=== PATIENT | female | born 1940 | race Caucasian/White ===

== ENCOUNTER 2021-05-27 07:12 | Inpatient (IN) | payer MEDICARE ==
[~2021-05-27] VITALS: Ht 162.6 cm; Wt 81.6 kg
[~2021-05-27 07:12] MED LIST: ADULT LOW DOSE81 MG PO; AMITRIPTYLINE H25 M3 PO; AMITRIPTYLINE H50 M2; ARICEPT 5 MG TAB5 MG PO; ASPIRIN81 M2; ATENOLOL 50 MG50 M1; BENTYL 10 MG CA10 MG PO; CELEXA40 MG; DITROPAN XL5 M1; FISH OIL 1,0001 EAC5; LASIX 40 MG TAB40 M1; LEVEMIR; LEVEMIR100 UNIT/1 SUBQ; LEVOTHROID75 MCG; LIPITOR10 MG PO; LISINOPRIL10 MG; METOCLOPRAMIDE10 MG; MOBIC7.5 M1; MULTIVITAMINS1 EAC7; NORVASC10 MG PO; NOVOLOG100 UNIT/1; NOVOLOG100 UNIT/1 SUBQ; OMEPRAZOLE20 M2; PRILOSEC OTC20 MG PO; PROBIOTIC1 EAC7 PO; PROZAC20 M1 PO; RENAL VITAMIN0.8 MG PO; SODIUM BICARBO650 M3 PO; SYNTHROID75 MC1 PO; WAL ITIN D; ZYRTEC10 M4 PO
[2021-05-27 07:46] LABS: HEMATOCRIT 36.5 % (37.0-47.0); HEMOGLOBIN 12.5 gm/dL (12.0-15.0); MCH 30.4 pg (26.0-34.0); MCHC 34.3 g/dL (28.0-37.0); MCV 88.7 fL (80.0-100.0); MPV 7.2 fl. (7.2-11.1); RBC 4.11 mil/uL (4.20-5.00); RDW-CV 18.3 % (10.5-14.5); WBC 8.9 thou/uL (4.0-11.0)
[2021-05-27 07:53] LABS: CALCIUM 10.2 mg/dL (8.5-10.1); CREATININE 3.6 mg/dL (0.6-1.3); POTASSIUM 4.1 mmol/L (3.5-5.1)
[2021-05-27] MEDS ORDERED: NORCO5 PO (10:27)
--- NOTE | 2021-05-27 11:48 | EKG ---
[place] [address] ELECTROCARDIOGRAM REPORT Name: KARAN BENITO Room: [facility]#: [id number] Admission: 05/27/21 Attend Phys: Geo Chowdary Discharge: Date of : 40 Date of Service: 05/27/21 0748 Report #: [id number] THIS REPORT FOR: //name// 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: : 1940 Requested By: Geo Rodriguez Order Number: [id number] Reading MD: Roman Gong Measurements Intervals [place] Rate: 78 P: 44 AR: 191 QRS: 31 QRSD: 92 T: 62 QT: 429 QTc: 489 Interpretive Statements Sinus rhythm Nonspecific ST segment depression Consider left ventricular hypertrophy Compared to ECG 06/04/2007 23:00:24 ST (T wave) deviation no longer present Electronically Signed On 05-27-2021 11:48:50 CDT by Roman Gong [email or web address] <ELECTRONICALLY SIGNED> By: Roman Gong MD, FAC 05/27/21 1148 0748 0748 Roman Gong MD, [facility] /EPI
[2021-05-27 13:15] LABS: ABSOLUTE BASOPHILS 0.1 thou/uL (0.0-0.2); ABSOLUTE EOSINOPHILS 0.1 thou/uL (0.0-0.7); ABSOLUTE LYMPHOCYTES 1.6 thou/uL (0.8-5.3); ABSOLUTE MONOCYTES 0.4 thou/uL (0.0-1.2); ABSOLUTE NEUTROPHILS 4.7 thou/uL (1.6-8.1); BASOPHILS 1.2 %; EOSINOPHILS 0.9 %; HEMATOCRIT 34.8 % (37.0-47.0); LYMPHOCYTES 23.4 %; MCHC 34.6 g/dL (28.0-37.0); MCV 89.6 fL (80.0-100.0); MONOCYTES 5.3 %; MPV 7.1 fl. (7.2-11.1); NUCLEATED RBCS 0 /100WBC; PLATELET COUNT* 195 thou/uL (150-400); POLYS 69.2 %; RBC 3.88 mil/uL (4.20-5.00); RDW-CV 18.5 % (10.5-14.5); WBC 6.8 thou/uL (4.0-11.0)
[2021-05-27 13:19] LABS: BE -0.5 mmol/L (-2 to +3); PCO2 32.5 mmHg (35.0-45.0); PO2 88.9 mmHg (75.0-100.0); pH 7.461 (7.340-7.450)
[2021-05-27 13:24] LABS: CALCIUM 9.5 mg/dL (8.5-10.1); CREATININE 3.9 mg/dL (0.6-1.3)
[2021-05-27 13:29] LABS: ALBUMIN 3.7 g/dL (3.4-5.0); TOTAL BILIRUBIN 0.2 mg/dL (<0.1-1.0); TOTAL PROTEIN 7.9 g/dL (6.4-8.2)
[2021-05-27 17:25] VITALS: BP 154/75
--- NOTE | 2021-05-27 18:19 | NUR ---
PATIENT ARRIVED FROM SURGERY THIS EVENING. PATIENT SETTLED TO ROOM. HISTORY ASSESSMENT AND VITALS COMPLETED AND DOCUMENTED. PATIENT HAS COMPLAINTS OF ABDOMINAL PAIN, TREATED ADEQUATELY WITH FENTANYL. OXYGEN ON AT 3L/NC. PATIENT HAS GOOD APPETITE. SURGICAL DRESSING CLEAN/DRY/INTACT. PATIENT DENIES ANY NEEDS AT THIS TIME. CALL LIGHT WITHIN REACH.
[2021-05-27 20:30] VITALS: BP 175/76
[2021-05-27 21:37] LABS: HEMATOCRIT 32.7 % (37.0-47.0); HEMOGLOBIN 11.3 gm/dL (12.0-15.0)
[2021-05-28] VITALS: BP 143/60
[2021-05-28 04:10] VITALS: BP 150/63
[2021-05-28 04:22] LABS: ABSOLUTE EOSINOPHILS 0.1 thou/uL (0.0-0.7); ABSOLUTE LYMPHOCYTES 1.7 thou/uL (0.8-5.3); ABSOLUTE MONOCYTES 0.4 thou/uL (0.0-1.2); ABSOLUTE NEUTROPHILS 4.2 thou/uL (1.6-8.1); BASOPHILS 0.6 %; EOSINOPHILS 1.6 %; HEMATOCRIT 30.6 % (37.0-47.0); HEMOGLOBIN 10.7 gm/dL (12.0-15.0); LYMPHOCYTES 26.1 %; MCH 31.1 pg (26.0-34.0); MCHC 34.9 g/dL (28.0-37.0); MCV 89.3 fL (80.0-100.0); MONOCYTES 6.3 %; MPV 6.9 fl. (7.2-11.1); NUCLEATED RBCS 0 /100WBC; PLATELET COUNT* 173 thou/uL (150-400); POLYS 65.4 %; RBC 3.43 mil/uL (4.20-5.00); RDW-CV 18.2 % (10.5-14.5); WBC 6.5 thou/uL (4.0-11.0)
--- NOTE | 2021-05-28 04:59 | NUR ---
Alert and oriented x 4. Abdominal dressing to lower abdomen is dry and intact. She was up to the bedside commode with assist but wasn't voiding much. Vitals have been stable. She has O2 at 3L n/c and has no c/o shortness of air this shift. She was stating that she had abdominal pain HH had been ordered and it was in stable range. Pain meds were given and has helped. She did feel like she had to keep voiding so bladder scan was done and it was 835mls Dr Parish was notified and ordered a walters o DD. It has had a large amount of urine output. She has slept well after walters inserted.
[2021-05-28 05:20] LABS: ALBUMIN 3.1 g/dL (3.4-5.0); CREATININE 4.6 mg/dL (0.6-1.3); POTASSIUM 3.9 mmol/L (3.5-5.1); TOTAL BILIRUBIN 0.3 mg/dL (<0.1-1.0)
[2021-05-28 07:55] VITALS: BP 152/63
--- NOTE | 2021-05-28 14:37 | NUR ---
Pt is A&O. Resides at home alone. Independent, dtr provides transportation. Pt uses a walker for mobility. No home o2. Pt is current at [facility] on a MWF 1145 schedule, Pt will return to HD at [facility] and will continue HD through June. Pt had PD port placed, experiencing pain, to speak with surgeon regarding pain control. Hx of VNA HH, Pt wants VNA at dc, H&P, dc orders and facesheet will need to be faxed to [phone]. Hx of SNF several years ago. Pt to have dialysis today. Monitor pain. CM updated [facility] of probable weekend dc. H&P and flowsheets will need to be faxed to [phone]
--- NOTE | 2021-05-28 19:27 | NUR ---
Pt remained A&O x4 for entire shift. Pt off unit for dialysis this afternoon. Pt's dressing remained clean, dry and intact. Pt pleasant with staff, vital signs stable. Pt given meds per JAN. Bed in low position, bed alarm on, call light within reach.
[2021-05-28 19:50] VITALS: BP 132/61
[2021-05-29 06:05] LABS: ABSOLUTE EOSINOPHILS 0.1 thou/uL (0.0-0.7); ABSOLUTE LYMPHOCYTES 1.2 thou/uL (0.8-5.3); ABSOLUTE MONOCYTES 0.4 thou/uL (0.0-1.2); ABSOLUTE NEUTROPHILS 3.5 thou/uL (1.6-8.1); BASOPHILS 0.4 %; EOSINOPHILS 2.7 %; HEMATOCRIT 29.7 % (37.0-47.0); HEMOGLOBIN 10.2 gm/dL (12.0-15.0); LYMPHOCYTES 22.4 %; MCH 30.4 pg (26.0-34.0); MCHC 34.4 g/dL (28.0-37.0); MCV 88.2 fL (80.0-100.0); MONOCYTES 6.8 %; MPV 7.3 fl. (7.2-11.1); NUCLEATED RBCS 0 /100WBC; PLATELET COUNT* 181 thou/uL (150-400); POLYS 67.7 %; RBC 3.36 mil/uL (4.20-5.00); RDW-CV 18.6 % (10.5-14.5); WBC 5.2 thou/uL (4.0-11.0)
[2021-05-29 06:10] LABS: CALCIUM 8.7 mg/dL (8.5-10.1); POTASSIUM 4.2 mmol/L (3.5-5.1); TOTAL BILIRUBIN 0.2 mg/dL (<0.1-1.0); TOTAL PROTEIN 6.9 g/dL (6.4-8.2)
[2021-05-29 06:40] LABS: CREATININE 3.4 mg/dL (0.6-1.3)
[2021-05-29 07:45] VITALS: BP 165/68
--- NOTE | 2021-05-29 15:02 | CON ---
[address] [address] CONSULTATION Name: KARAN BENITO Room: [address] IN M.R.#: [id number] Admission: 05/28/21 Attend Phys: Sushant Parish MD Discharge: Date of : 40 Report #: [id number] THIS REPORT FOR: cc: Kush Gresham John E. DO Khan, Abid R. MD ~ DATE OF CONSULTATION: 05/28/2021 NEPHROLOGY CONSULTATION REASON FOR CONSULT: End-stage kidney disease. HISTORY OF PRESENT ILLNESS: An 80-year-old female with a history of end-stage kidney disease, on hemodialysis Monday, Monday, Monday, who was admitted postoperatively after having a peritoneal dialysis catheter placed. She was having some abdominal discomfort and hypoxia and thus was admitted for observation. She is tolerating dialysis well, has some pain in her abdomen, but is receiving pain medications for this. Otherwise, is tolerating her dialysis treatment well. She did undergo a CT scan of her abdomen and it was unrevealing. REVIEW OF SYSTEMS: Constitutional, psych, heme, eyes, ENT, respiratory, cardiac, GI, , endocrine, all negative except as documented above. PAST MEDICAL HISTORY: End-stage kidney disease, COPD, diabetes type 2, hypertension, hypothyroidism. FAMILY HISTORY: Nonpertinent for this 80-year-old female. CURRENT MEDICATIONS: Reviewed. SOCIAL HISTORY: Former smoker. PHYSICAL EXAMINATION: VITAL SIGNS: Blood pressure 152/63, pulse 80, respirations 19, temperature 36.8 GENERAL: No acute distress. Eyes open. EARS: Externally normal. NECK: Supple. CARDIOVASCULAR: Regular rate. LUNGS: No crackles. ABDOMEN: Soft. MUSCULOSKELETAL: Nontender. PSYCHIATRIC: Awake, alert. LABORATORY DATA: White cell count 6.5, hemoglobin 10.7, platelets [place] [address] CONSULTATION Name: KARAN BENITO Room: [address]#: [id number] Admission: 05/28/21 Attend Phys: Sushant Parish MD Discharge: Date of : 40 Report #: [id number] 131, potassium 3.9, chloride 96, bicarbonate 25, BUN 42, creatinine 4.6, glucose 90, albumin 3.1, calcium 9.0. ASSESSMENT AND PLAN: 1. End-stage kidney disease, on hemodialysis Monday, Monday and Monday at the [facility]. She is status post peritoneal dialysis catheter placement. 2. Hypertension. 3. Noninsulin-dependent diabetes type 2. 4. Chronic obstructive pulmonary disease. 5. Hypothyroidism. PLAN: The patient is seen on dialysis, tolerating treatment well. She will need a followup in PD clinic in 1 week for a dressing change. I emphasized to her the importance of avoiding constipation. She tells me she did take the laxative today. We will follow for dialysis needs. Thank you, for requesting my opinion in the care and management of this patient. <ELECTRONICALLY SIGNED> By: Fareed Chavez MD 05/29/21 1502 1448 [id number] Chavez MD /nt
[2021-05-29 16:00] VITALS: BP 132/56
--- NOTE | 2021-05-29 18:42 | NUR ---
ALERT AND ORIENTED X4. UP WITH 1 ASSIST, GAIT BELT AND WALKER. ON IV ANTIBIODICS. NEW IV STARTED IN RIGHT HAND. HAS FISTULA IN LEFT UPPER ARM AND TESSIO LEFT UPPER CHEST FOR DIALYSIS. LEFT LOWER ABD DRESSING DRY AND INTACT. USES CALL LIGHT FOR ASSIST.
[2021-05-29 20:56] VITALS: BP 153/73
[2021-05-30 02:28] VITALS: BP 168/74
--- NOTE | 2021-05-30 02:31 | NUR ---
PATIENT AWAKE AND CALLING PER NURSE CALL LIGHT FOR ASSIST TO GET UP IN CHAIR. ASKED WHERE SHE WAS. RE-ORIENTED. VITAL SIGNS AND BLOOD GLUCOSE CHECKED AND WITHIN NORMAL LIMITS. CHAIR ALARM PROVIDED. CONTINUE TO MONITOR.
--- NOTE | 2021-05-30 04:59 | NUR ---
PATIENT ALERT AND ORIENTED X 4 WITH EXCEPTION OF WAKING IN THE NIGHT AND FORGETTING WHERE SHE WAS AT. RE-ORIENTED AND PATIENT WENT BACK TO SLEEP. DRESSING TO ABD SITE CLEAN AND DRY. MEDS/ANTIBIOTIC PER ORDER. VITAL SIGNS STABLE AND NO SHORTNESS OF AIR. IS HOWEVER STILL REQUIRING SUPPLEMENTAL O2 AT 3L/MIN. HOURLY ROUNDING. CONTINUE TO MONITOR.
[2021-05-30 06:27] LABS: HEMATOCRIT 30.9 % (37.0-47.0); HEMOGLOBIN 10.7 gm/dL (12.0-15.0); MCHC 34.6 g/dL (28.0-37.0); MCV 89.5 fL (80.0-100.0); MPV 7.4 fl. (7.2-11.1); NUCLEATED RBCS 0 /100WBC; PLATELET COUNT* 194 thou/uL (150-400); RBC 3.45 mil/uL (4.20-5.00); RDW-CV 18.6 % (10.5-14.5); WBC 6.6 thou/uL (4.0-11.0)
[2021-05-30 06:41] LABS: CALCIUM 9.4 mg/dL (8.5-10.1); POTASSIUM 5.9 mmol/L (3.5-5.1); TOTAL BILIRUBIN 0.4 mg/dL (<0.1-1.0); TOTAL PROTEIN 7.5 g/dL (6.4-8.2)
[2021-05-30 06:52] LABS: CREATININE 4.4 mg/dL (0.6-1.3)
[2021-05-30 07:42] LABS: ABSOLUTE LYMPHOCYTES 0.3 thou/uL (0.8-5.3); ABSOLUTE MONOCYTES 0.3 thou/uL (0.0-1.2); ABSOLUTE NEUTROPHILS 5.9 thou/uL (1.6-8.1); PLATELET ESTIMATE ADEQUATE
[2021-05-30 08:00] VITALS: BP 113/62
[2021-05-30 16:00] VITALS: BP 156/62
--- NOTE | 2021-05-30 20:16 | NUR ---
ALERT AND ORIENTED X4. UP WITH 1 ASSIST, GAIT BELT AND WALKER. HAS LEDESMA CATHETER PATENT WITH CLEAR PALE YELLOW URINE. TOOK STOOL SOFTNER FOR CONSTIPATION. DRESSINGS DRY AND INTACT OVER ABD INCISION SITE. HAS TESSIO AND FISTULA FOR DIALYSIS. REMAINS ON O2 AT 3L/NC. TAKES PILLS WITHOUT DIFFICULTY. USES CALL LIGHT FOR ASSIST.
[2021-05-30 20:35] VITALS: BP 158/70
[2021-05-31 00:36] VITALS: BP 149/60
--- NOTE | 2021-05-31 05:12 | NUR ---
PATIENT HAS REMAINED ALERT AND ORIENTED X 4 THROUGHOUT THE SHIFT AND RESTING QUIETLY ON HOURLY ROUNDS. ONE TIME ORDER OF LACTULOSE GIVEN PER ORDER. TURNING SELF IN BED. NO SHORTNESS OF AIR. O2 REMAINS ON AT 2L/MIN. VITAL SIGNS STABLE. NO BM'S THIS SHIFT. DRESSING TO ABD CLEAN AND DRY. CONTINUE TO MONITOR.
[2021-05-31 05:55] LABS: ABSOLUTE EOSINOPHILS 0.2 thou/uL (0.0-0.7); ABSOLUTE MONOCYTES 0.5 thou/uL (0.0-1.2); ABSOLUTE NEUTROPHILS 6.1 thou/uL (1.6-8.1); BASOPHILS 0.3 %; EOSINOPHILS 2.3 %; HEMATOCRIT 28.8 % (37.0-47.0); HEMOGLOBIN 10.1 gm/dL (12.0-15.0); LYMPHOCYTES 22.3 %; MCH 30.8 pg (26.0-34.0); MONOCYTES 5.7 %; MPV 7.1 fl. (7.2-11.1); NUCLEATED RBCS 0 /100WBC; PLATELET COUNT* 224 thou/uL (150-400); POLYS 69.4 %; RBC 3.27 mil/uL (4.20-5.00); RDW-CV 18.4 % (10.5-14.5); WBC 8.8 thou/uL (4.0-11.0)
[2021-05-31 05:58] LABS: CALCIUM 9.3 mg/dL (8.5-10.1); CREATININE 5.2 mg/dL (0.6-1.3)
[2021-05-31 06:00] LABS: POTASSIUM 4.6 mmol/L (3.5-5.1)
[2021-05-31 08:23] VITALS: BP 167/71
[2021-05-31 15:45] VITALS: BP 164/75
--- NOTE | 2021-05-31 16:17 | NUR ---
PT UP TO BSC WITH ASSIST. BALTAZAR TO DD FOR RETENTION. DIALYSIS TODAY. REMOVED 3L. O2 2LNC. BG THIS AM 39. JUICE GIVEN AND DR WADE NOTIFIED. RECHECKS 55/105. PT TO D/C TO SHELTER WHEN PLACEMENT IS FOUND. CALL LIGHT IN REACH. FALL PRECAUTIONS IN PLACE.
--- NOTE | 2021-05-31 16:19 | NUR ---
cm spk with pt regarding snf options, pt indicated [facility]. pt did not have a specific alt option, her only preference is facility [place] in [place]. cm faxed referrals to [facility] and [facility].
[2021-05-31 19:45] VITALS: BP 158/77
--- NOTE | 2021-06-01 04:05 | NUR ---
PT A&O X 4. VSS ON 2L. LANTUS ONLY GIVEN 25 UNITS PER PT REQUEST. LT CHEST DIALYSIS PORT INTACT. ABD DRESSINGS C/D/I. LEDESMA IN PLACE. NO C/O PAIN. CALL LIGHT WITHIN REACH. WILL CONTINUE TO MONITOR.
[2021-06-01 08:32] VITALS: BP 112/61
[2021-06-01 12:12] VITALS: BP 160/58
[2021-06-01 15:42] VITALS: BP 149/62
--- NOTE | 2021-06-01 18:16 | NUR ---
PATIENT HAS REMAINED A&OX4, PLEASANT AND COOPERATIVE WITH CARES THIS SHIFT. PATIENT HAS BEEN INCONTINENT OF LOOSE BM SEVERAL TIMES TODAY AND REQUESTED BENTYL FROM DR. GANN, WHICH WAS ORDERED. PATIENT ALSO REQUESTED IV BE REMOVED AND THIS WAS ALOS APPROVED BY DR. GANN THEREFORE IV FROM RIGHT HAND WAS REMOVED. URINARY CATHETER TO DD, CLEAR YELLOW URINE IN COLLECTION BAG. MEDICATIONS AND INSULIN ADMINISTERED ORDERED. PATIENT C/O ABD AND BACK PAIN HOWEVER REQUESTS APAP INSTEAD OF HYDROCODONE, STATING "THAT CONSTIPATES ME". CALL LIGHT AND FREQUENTLY USED ITEMS WITHIN REACH.
[2021-06-01 19:54] VITALS: BP 142/50
--- NOTE | 2021-06-02 04:59 | NUR ---
06/01/212219 YOU CALL SENT TO DR. GANN THAT PATIENT REFUSED GLARGINE DUE TO LOW BLOOD GLUCOSE LEVELS PAST TWO MORNINGS. 06/01 HS BG 118. HX: 05/31/21 HS BG 148, 25 UNITS GLARGINE GIVEN, AM BG 59. 05/30/21 HS BG 161, AM BLOOD GLUCOSE WAS 39. CONFIRMATION OF RECEIPT OF MESSAGE RECEIVED AT 0, NO CALL BACK.
--- NOTE | 2021-06-02 06:30 | NUR ---
PT A&OX4, VSS ON ROOM AIR, URINARY CATHETER IN PLACE, NO IV ACCESS - PHYSICIAN AWARE, NO CO PAIN OR DISCOMFORT, PT SLEEPING WELL. ASSESSMENTS AND HOURLY ROUNDINGS COMPLETE, WILL CONTINUE TO MONITOR.
[2021-06-02 08:00] VITALS: BP 163/73
[2021-06-02 08:13] LABS: HEMATOCRIT 32.1 % (37.0-47.0); HEMOGLOBIN 10.9 gm/dL (12.0-15.0); MCH 30.3 pg (26.0-34.0); MPV 7.1 fl. (7.2-11.1); RBC 3.61 mil/uL (4.20-5.00); RDW-CV 18.8 % (10.5-14.5); WBC 7.1 thou/uL (4.0-11.0)
[2021-06-02 08:20] LABS: CALCIUM 9.7 mg/dL (8.5-10.1); CREATININE 4.6 mg/dL (0.6-1.3); POTASSIUM 5.3 mmol/L (3.5-5.1)
--- NOTE | 2021-06-02 13:20 | NUR ---
ALANNAH WITH [facility] INFORMED CM THEY ARE, NOW, NOT ACCEPTING OF PT, AFTER TELLING CM YESTERDAY THAT THE DON WAS SUBMITTING FOR AUTH. CM SPK WITH TOBY AT [facility] WHO INDIACATED SHE NEEDS UPDATED PT/OT NOTES AND COVID TEST. CASI SPK WITH V[facility], DIRECTOR OF REHAB IN 11a ROUNDS TO HAVE PT SEE PT. OF 1258 PT WAS VARIANCE D/T PT BEING IN DIALYSIS. CM ASKED SANCHEZ IF PT COULD BE SEEN AGAIN TODAY BY PT.VITALY INIDCATED THERAPIST WILL TRY TO SEE PT AGAIN.
--- NOTE | 2021-06-02 14:21 | NUR ---
1250: PATIENT RETURNED TO ROOM AT THIS TIME VIA BED FROM DIALYSIS.
[2021-06-02 16:40] VITALS: BP 122/65
--- NOTE | 2021-06-02 17:23 | NUR ---
PATIENT RESTING IN BED, EATING DINNER. PORT TO LEFTCHEST, PATENT. PERITONEAL DIALYSIS FISTULA TO RIGHT ARM, PATENT. DIALYSIS DONE TODAY, PATIENT TOLERATED WITHOUT DIFFICULTIES. BLOOD SUGARS MONITORED, INSULIN GIVEN ORDERED. LEDESMA SECURELY INPLACE TO DEPENDENT DRAINAGE, PATENT. PATIENT WITH WET COUGH. LUNGS DIMINISHED BILATERALLY. BED IN LOW/LOCKED POSITION. SIDE RAILS UP X2. CALL LIGHT WITHIN REACH. ALL QUESTIONS AND CONCERNS ADDRESSED.
[2021-06-02 19:48] VITALS: BP 132/62
--- NOTE | 2021-06-03 03:57 | NUR ---
PT A&OX4, VSS ON ROOM AIR, PT UP WITH ASSIST GB & WALKER. NO IV ACCESS APPROVED BY PHYSICIAN. DIALYSIS PATIENT. URINARY CATHETER IN PLACE. PRN PAIN MEDS REQUESTED AND GIVEN ORDERED. PT SLEEPING WELL. WILL CONTINUE TO MONITOR.
[2021-06-03 08:30] VITALS: BP 109/52
[2021-06-03 08:49] VITALS: BP 109/52
[2021-06-03] MEDS ORDERED: CEFDINIR300 MG PO (09:11)
[2021-06-03] MEDS ORDERED: MUCINEX600 MG PO (09:11)
[2021-06-03] MEDS ORDERED: HYDROCODON-ACE1 EAC7 PO (09:11)
[2021-06-03] MEDS ORDERED: TESSALON PERLE100 MG PO (09:11)
[2021-06-03] MEDS ORDERED: IPRAT-ALBUT 0.5-3 ML INH (09:11)
--- NOTE | 2021-06-03 10:12 | NUR ---
CM FAXED UPDATED THERAPY NOTES, AND UPDATED PROGREE NOTES TO [facility] AT [phone]. CM F/U WITH PT'S BEDSIDE RN RE COVID TEST, IM NOT SEEING RESULTS IN PT'S CHART.
--- NOTE | 2021-06-03 14:46 | NUR ---
CM RECEIVED CALL FROM TOBY WITH [facility], INDICATING THE RECEIVED AUTH. PT INFORMED. PT INDICATED HER DTR WAS CONTACTED BY [employer]. CM INFORMED TOBY OF PT DIALYSIS INFO AND SEAT TIME ON , AT [facility]. PT RN GIVEN NUMBER TO CALL REPORT, - [id number]. US TO MAKE CHART COPY. TOBY TO [facility] [phone].
--- NOTE | 2021-06-03 16:27 | NUR ---
PATIENT DISCHARGE/TRANSFERED TO NURSING REHAB FACILITY VIA WHEELCHAIR ACCOMPANIED BY TRANSPORT PERSONNEL. CHART COPIED AND SENT WITH PATIENT. LEDESMA SECURELY INPLACE TO DEPENDENT DRAINAGE. INCISIONS TO ABDOMEN, UNABLE TO ASSESS DUE TO DRESSING. DRESSING C/D/I. DRESSING TO LEFT ABDOMEN CHANGED AT THIS TIME, NO REDNESS, SWELLING OR DRAINAGE TO SITE. PERITONEAL FISTULA TO LEFT ARM WITHOUT COMPLICATIONS. PORT TO LEFT CHEST WITHOUT COMPLICATIONS. DRESSINGS C/D/I. BLOOD SUGARS MONITORED DURING SHIFT, INSULIN GIVEN ORDERED. ALL QUESTIONS AND CONCERNS ADDRESSED. PERSONAL BELONGINGS SENT WITH PATIENT.
--- NOTE | 2021-06-05 17:05 | OP ---
[address] [address] OPERATIVE REPORT Name: KARAN BENITO Room: [address] IN M.R.#: [id number] Admission: 05/28/21 Attend Phys: Sushant Parish MD Discharge: 06/03/21 Date of : 40 Report #: [id number] THIS REPORT FOR: cc: Kush Gresham John E. DO Patterson, Jonathan D. MD ~ DATE OF SURGERY: 05/27/2021 PREOPERATIVE DIAGNOSIS: End-stage renal disease. POSTOPERATIVE DIAGNOSIS: End-stage renal disease. OPERATION: 1. Laparoscopic placement of tunneled intraperitoneal catheter. 2. Laparoscopic omentopexy. SURGEON: Geo Rodriguez MD. ANESTHESIA: General. ESTIMATED BLOOD LOSS: Minimal. SPECIMENS: None. DESCRIPTION OF PROCEDURE: After informed consent was obtained, the patient was brought to the operating room and placed supine. SCDs were placed and working, preoperative antibiotics were administered, general anesthesia was induced. The abdomen was prepped and draped in the usual sterile fashion. A 5 mm incision was made in the left upper quadrant. A 5 mm trocar was placed under direct vision. Pneumoperitoneum was established. Left-sided 5 mm trocar was placed. The omentum was grasped and retracted to the right upper quadrant. Two 2-0 Vicryl sutures were placed using a transfascial PMI suture passer. The sutures were then tied down. This completed the omentopexy. An 8 mm trocar was placed in the left rectus sheath approximately 5 cm above the umbilicus. The 62 cm Covidien catheter was placed through the 8 mm trocar and the tip was placed down into the pelvis. The trocar was then removed so that the internal cuff was in the left rectus sheath. Catheter was then tunneled to the left upper quadrant of the abdomen. It flushed easily with 750 mL of heparinized saline. It drained easily as well. The ports were then removed under direct vision. The skin was closed with 4-0 Monocryl. Incision was dressed with Steri-Strips and a sterile occlusive dressing. COMPLICATIONS: [place] [address] OPERATIVE REPORT Name: KARAN BENITO Room: [address]#: [id number] Admission: 05/28/21 Attend Phys: Sushant Parish MD Discharge: 06/03/21 Date of : 40 Report #: [id number] DISPOSITION: The patient was taken to recovery in satisfactory condition. <ELECTRONICALLY SIGNED> By: Geo Rodriguez MD 06/05/21 1705 1518 1528Jogreta Rodriguez MD /nt
== END 2021-06-03 16:36 | DRG 981 ==
LOC: M.SUR 07:12 → M.TBA 12:39 → M.SUR 16:27 → M.3W 17:25
PROVIDERS: Internal Medicine; Surgery; ADMIT Internal Medicine; ATTEND Internal Medicine
DX: D62 Acute posthemorrhagic anemia (principal); N18.6 End stage renal disease; I12.0 Hypertensive chronic kidney disease with stage 5 chronic kidney disease or end stage renal disease; E87.1 Hypo-osmolality and hyponatremia; G89.18 Other acute postprocedural pain; T81.89XA Other complications of procedures, not elsewhere classified, initial encounter; E83.52 Hypercalcemia; E11.65 Type 2 diabetes mellitus with hyperglycemia; E11.649 Type 2 diabetes mellitus with hypoglycemia without coma; K21.9 Gastro-esophageal reflux disease without esophagitis; F32.9 Major depressive disorder, single episode, unspecified; E03.9 Hypothyroidism, unspecified; J44.9 Chronic obstructive pulmonary disease, unspecified; K59.00 Constipation, unspecified; E11.22 Type 2 diabetes mellitus with diabetic chronic kidney disease; J20.9 Acute bronchitis, unspecified; Z20.822 Contact with and (suspected) exposure to COVID-19; Z88.2 Allergy status to sulfonamides; Z90.710 Acquired absence of both cervix and uterus; Z49.02 Encounter for fitting and adjustment of peritoneal dialysis catheter; Z90.49 Acquired absence of other specified parts of digestive tract; Z87.891 Personal history of nicotine dependence; Z79.82 Long term (current) use of aspirin; Z79.899 Other long term (current) drug therapy; Y83.8 Other surgical procedures as the cause of abnormal reaction of the patient, or of later complication, without mention of misadventure at the time of the procedure; Y92.89 Other specified places as the place of occurrence of the external cause

== ENCOUNTER 2021-07-13 22:57 | Inpatient (IN) | payer MEDICARE ==
[~2021-07-13] VITALS: Ht 152.4 cm; Wt 80.0 kg
[~2021-07-13 22:57] MED LIST changes: +CEFDINIR300 MG PO; +HYDROCODON-ACE1 EAC7 PO; +IPRAT-ALBUT 0.5-3 ML INH; +MUCINEX600 MG PO; +NORCO5 PO; +TESSALON PERLE100 MG PO
[2021-07-13 23:01] VITALS: BP 187/62
[2021-07-13] MEDS ORDERED: NORVASC10 MG PO (23:11)
[2021-07-13] MEDS ORDERED: LOW DOSE ASPIRI81 M1 PO (23:12)
[2021-07-13] MEDS ORDERED: DONEPEZIL HCL 55 M1 PO (23:12)
[2021-07-13] MEDS ORDERED: LEVOXYL150 MCG PO (23:12)
[2021-07-13] MEDS ORDERED: PROBIOTIC1 EAC7 PO (23:13)
[2021-07-13] MEDS ORDERED: AMITRIPTYLINE H25 M3 PO (23:13)
[2021-07-13] MEDS ORDERED: ZYRTEC10 M5 PO (23:13)
[2021-07-13] MEDS ORDERED: SODIUM BICARBO650 M3 PO (23:14)
[2021-07-13] MEDS ORDERED: BENTYL 10 MG CA10 MG PO (23:14)
[2021-07-13] MEDS ORDERED: RENAPLEX-D TAB1 EACH PO (23:15)
[2021-07-13] MEDS ORDERED: PRILOSEC OTC20 MG PO (23:15)
[2021-07-13] MEDS ORDERED: LEVEMIR100 UNIT/1 SUBQ (23:16)
[2021-07-13] MEDS ORDERED: NOVOLIN 70100 UNIT/5 SUBQ (23:17)
[2021-07-13] MEDS ORDERED: HUMALOG100 UNIT/1 SUBQ (23:17)
[2021-07-13 23:56] LABS: ABSOLUTE EOSINOPHILS 0.4 thou/uL (0.0-0.7); ABSOLUTE LYMPHOCYTES 2.1 thou/uL (0.8-5.3); ABSOLUTE MONOCYTES 0.4 thou/uL (0.0-1.2); ABSOLUTE NEUTROPHILS 4.9 thou/uL (1.6-8.1); BASOPHILS 0.4 %; EOSINOPHILS 4.7 %; HEMATOCRIT 24.2 % (37.0-47.0); HEMOGLOBIN 8.2 gm/dL (12.0-15.0); LYMPHOCYTES 26.9 %; MCH 31.2 pg (26.0-34.0); MCV 91.7 fL (80.0-100.0); MONOCYTES 5.2 %; MPV 6.6 fl. (7.2-11.1); NUCLEATED RBCS 0 /100WBC; PLATELET COUNT* 280 thou/uL (150-400); POLYS 62.8 %; RBC 2.64 mil/uL (4.20-5.00); RDW-CV 17.5 % (10.5-14.5); WBC 7.8 thou/uL (4.0-11.0)
[2021-07-14] VITALS (7 sets, daily range): BP systolic 118–159; BP diastolic 52–74
[2021-07-14 00:06] LABS: CALCIUM 8.3 mg/dL (8.5-10.1); CREATININE 5.6 mg/dL (0.6-1.3); POTASSIUM 3.4 mmol/L (3.5-5.1)
[2021-07-14 00:16] LABS: ALBUMIN 2.9 g/dL (3.4-5.0); MAGNESIUM 1.7 mg/dL (1.8-2.4); TOTAL BILIRUBIN 0.2 mg/dL (<0.1-1.0); TOTAL PROTEIN 7.3 g/dL (6.4-8.2)
[2021-07-14 07:14] LABS: URINE BILIRUBIN NEGATIVE (Negative); URINE BLOOD TRACE (Negative); URINE CLARITY CLEAR; URINE COLOR YELLOW; URINE GLUCOSE-RANDOM 2+ (Negative); URINE KETONES NEGATIVE (Negative); URINE LEUKOCYTES-REFLEX NEGATIVE (Negative); URINE NITRITE-REFLEX NEGATIVE (Negative); URINE PROTEIN 2+ (Negative); URINE SPECIFIC GRAVITY <= 1.005 (1.005-1.030); URINE UROBILINOGEN 0.2 E.U./dl (0.2-1.0)
[2021-07-14 07:32] LABS: BACTERIA-REFLEX None Seen /HPF (None Seen); MUCUS 4-6 Moderate strn/LPF (None Seen); SQUAMOUS 0-3 Few /LPF (0-3); URINE RBC 0-2 Rare /HPF (0-2); URINE WBC-REFLEX 0-5 Rare /HPF (0-5)
[2021-07-14 07:33] LABS: CRYSTALS None Seen /LPF (None Seen); HYALINE CASTS 0-3 Few /LPF (None Seen)
--- NOTE | 2021-07-14 09:47 | EKG ---
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: MANUELA : 1940 Requested By: Martha Fabian Order Number: [id number] MD: Rory Carter Measurements Intervals [place] Rate: 98 P: 62 IA: 194 QRS: 21 QRSD: 100 T: QT: 383 QTc: 490 Interpretive Statements Sinus rhythm Repol abnrm, severe global ischemia (LM/MVD) Baseline wander in lead(s) V2 Compared to ECG 05/27/2021 07:48:18 Early repolarization now present Possible ischemia now present Electronically Signed On 07-14-2021 9:47:23 CDT by Rory Carter [email or web address] <ELECTRONICALLY SIGNED> By: Rory Carter MD, FAC 07/14/2147 01 01 Rory Carter MD, [facility] /EPI
--- NOTE | 2021-07-14 09:48 | EKG ---
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: [place] : 1940 Requested By: Martha Fabian Order Number: [id number] MD: Rory Carter Measurements Intervals [place] Rate: 88 P: 87 [place]: 193 QRS: 15 QRSD: 96 T: 29 QT: 414 QTc: 501 Interpretive Statements Sinus rhythm Left ventricular hypertrophy Prolonged QT interval Compared to ECG 07/13/2021 23:02:51 Left ventricular hypertrophy now present Prolonged QT interval now present Electronically Signed On 07-14-2021 9:48:44 CDT by Rory Carter [email or web address] <ELECTRONICALLY SIGNED> By: Rory Carter MD, [facility] 07/14/21 0948 0119 0119 Rory Carter MD, [facility] /EPI
--- NOTE | 2021-07-14 09:50 | EKG ---
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: [place] : 1940 Requested By: Martha Fabian Order Number: [id number] MD: Rory Carter Measurements Intervals [place] Rate: 93 P: 75 [place]: 188 QRS: 20 QRSD: 94 T: 41 QT: 409 QTc: 509 Interpretive Statements Sinus rhythm Minimal ST depression, lateral leads Prolonged QT interval Baseline wander in lead(s) II,III,aVR,aVF Compared to ECG 07/14/2021 01:19:45 Left ventricular hypertrophy no longer present Electronically Signed On 07-14-2021 9:50:07 CDT by Rory Carter [email or web address] <ELECTRONICALLY SIGNED> By: Rory Carter MD, [facility] 07/14/2150 3 3 Rory Carter MD, [facility] /EPI
--- NOTE | 2021-07-14 13:19 | 2DMMODE ---
[place] [address] 2 D/M-MODE ECHOCARDIOGRAM Name: KARAN BENITO Room: [place] [address] ADM IN .R.#: [id number] Admission: 07/14/21 Attend Phys: Donte Gomez Discharge: Date of : 40 Date of Service: 07/14/21 1318 Report #: [id number] THIS REPORT FOR: cc: Kush Gresham John E. DO Blick,Rory Tucker MD [facility] ~ APPROVED REPORT Study performed: 07/14/2021 10:38:22 EXAM: Comprehensive 2D, Doppler, and color-flow Echocardiogram Patient Location: In-Patient Room #: er Status: routine BSA: 1.84 HR: 98 bpm BP: 137/52 mmHg Rhythm: NSR Other Information Study Quality: Good Indications Chest Pain 2D Dimensions IVSd: 14.54 (7-11mm) LVOT Diam: 19.60 (18-24mm) LVDd: 40.98 mm PWd: 13.94 (7-11mm) Ascending Ao: 31.10 (22-36mm) LVDs: 21.44 (25-40mm) Aortic Root: 34.21 mm Volumes Left Atrial Volume (Systole) LA ESV Index: 38.80 mL/m2 Aortic Valve AoV Peak Syed.: 1.82 m/s AO Peak Gr.: 13.18 mmHg LVOT Max P.29 mmHg AO Mean Gr.: 8.88 mmHg LVOT Mean P.93 mmHg LVOT Max V: 1.60 m/s AO V2 VTI: 39.73 cm LVOT Mean V: 1.15 m/s PORTIA (VTI): 2.83 cm2 LVOT V1 VTI: 37.31 [place] [address] 2 D/M-MODE ECHOCARDIOGRAM Name: KARAN BENITO Room: [address] IN [facility]#: [id number] Admission: 07/14/21 Attend Phys: Donte Gomez Discharge: Date of : 40 Date of Service: 07/14/21 1318 Report #: [id number] Mitral Valve MV Mean Gr.: 11.51 mmHg E/A Ratio: 0.79 MV Decel. Time: 117.87 ms MV E Max Syed.: 1.61 m/s MV PHT: 34.18 ms MVA (PHT): 6.44 cm2 TDI E/Lateral E': 13.42 Lateral E' Syed.: 0.12 m/s Pulmonary Valve PV Peak Syed.: 1.52 m/s PV Peak Gr.: 9.19 mmHg Left Ventricle The left ventricle is normal size. There is normal LV segmental wall motion. Mild concentric left ventricular hypertrophy. Left ventricular systolic function is normal. The left ventricular ejection fraction is within the normal range. LVEF is 60-65%. Grade I - abnormal relaxation pattern. Right Ventricle The right ventricle is normal size. The right ventricular systolic function is normal. Atria Left atrium is mildly dilated. The right atrium size is normal. Aortic Valve The aortic valve is normal in structure. No aortic regurgitation is present. There is no aortic valvular stenosis. Mitral Valve There is mitral annular calcification. The mitral valve is normal in structure. Trace mitral regurgitation. No evidence of mitral valve stenosis. Tricuspid Valve The tricuspid valve is normal in structure. Trace tricuspid regurgitation. Unable to assess PA pressure. Pulmonic Valve The pulmonary valve is normal in structure. There is no pulmonic [place] [address] 2 D/M-MODE ECHOCARDIOGRAM Name: KARAN BENITO Room: [address] IN [facility]#: [id number] Admission: 07/14/21 Attend Phys: Donte Gomez Discharge: Date of : 40 Date of Service: 07/14/21 1318 Report #: [id number] Great Vessels The aortic root is normal in size. IVC is normal in size and collapses >50% with inspiration. Pericardium There is no pericardial effusion. <Conclusion> Mild concentric left ventricular hypertrophy. LVEF is 60-65%. <ELECTRONICALLY SIGNED> By: Rory Carter MD, FACC 07/14/21 1318 Rory Carter MD, FACC /INF
--- NOTE | 2021-07-14 15:03 | CON ---
[address] [address] CONSULTATION Name: KARAN BENITO Room: [address] IN M.R.#: [id number] Admission: 07/14/21 Attend Phys: Stuart Hernadez Discharge: Date of : 40 Report #: [id number] THIS REPORT FOR: cc: Kush Gresham,Rory Francis MD [facility] ~ cc: Kush Gresham DO DATE OF CONSULTATION: 07/14/2021 CARDIOLOGY CONSULTATION PRIMARY CARE PHYSICIAN: Kush Gresham DO HISTORY OF PRESENT ILLNESS: The patient is an 80-year-old single white female whom I am asked to see in the Emergency Room today after she complained of chest pain. The patient has no previous history of heart disease. She apparently had a stress test years ago. She is not very active at this time and uses a walker. She has a long history of diabetes, hypertension, hyperlipidemia. She developed end-stage renal disease, was on hemodialysis, started in November. After a couple of months, she transitioned to nocturnal peritoneal dialysis. Recently, she has been dialyzed at night. She has had progressive shortness of breath. She came to the Emergency Room last night after she complained of chest pressure. It lasted several hours. It radiated to her shoulder. It is not related to exertion or meals. The pain was not related to take a deep breath or coughing. She has had no bleeding. Denied the pain being related to food. She denied trauma to her chest. There is no rash. She notes occasional episodes when her heart rate will increase, but she has had no syncope. PAST MEDICAL HISTORY: Previous cholecystectomy, hysterectomy, cataract extraction. She has a history of hypertension, diabetes, hyperlipidemia. She is on insulin. CURRENT MEDICATIONS: Consist of Elavil, amlodipine, aspirin, Bentyl, donepezil, insulin, Synthroid, omeprazole, sodium bicarbonate. ALLERGIES: SHE HAS PREVIOUS INTOLERANCE TO SULFA DRUGS. FAMILY HISTORY: Her mother was an alcoholic. SOCIAL HISTORY: She is a , lives by herself in [place], [place]. She smoked a pack of cigarettes a day, quit 20 years ago. No alcohol abuse. FAMILY HISTORY: Negative [place] [address] CONSULTATION Name: KARAN BENITO Jayme Room: [address]#: [id number] Admission: 07/14/21 Attend Phys: Stuart Hernadez Discharge: Date of : 40 Report #: [id number] REVIEW OF SYSTEMS: She apparently had a previous TIA. No history of asthma or liver disease. She had skin cancer removed in the past. No psychiatric illness. No chronic skin condition. PHYSICAL EXAMINATION: GENERAL: Revealed an elderly female, lying in bed. She appeared in no acute distress. VITAL SIGNS: She had a blood pressure of 150/60, pulse is 80, she is afebrile. HEENT: She was anicteric. Conjunctivae pink. Mucous membranes are moist. NECK: Veins do not appear distended. Carotids, she had a radiating systolic murmur noted in the carotids. Neck was supple. CHEST: Clear to auscultation. CARDIAC: Regular rate and rhythm. Grade 3 systolic ejection murmur at the left sternal border. ABDOMEN: Soft. Peritoneal dialysis catheter is in place. EXTREMITIES: Had no pitting edema. Dorsalis pedis pulse 2+. SKIN: Cool and dry. NEUROLOGIC: Nonfocal. LABORATORY DATA: Her ECG on admission showed a sinus rhythm with nonspecific ST and T-wave changes. Her workup in the Emergency Room last night; she had portable chest x-ray that showed scarring, but no evidence of congestive heart failure, pneumonia or pneumothorax. Her lab work; BUN is 63, creatinine is 5.6. Her high sensitivity troponin was 15, repeat was 16. BNP 1870. White blood cell count 7.8, hemoglobin 8.2. Her COVID antigen stat test was negative. The patient did receive two shots of the vaccine in the past. Urinalysis; 2+ protein, trace blood, many white blood cells. IMPRESSION AND RECOMMENDATIONS: 1. Chest pain. Suspect noncardiac. No evidence of acute myocardial infarction. No rub noted. 2. Cardiac murmur. Suspect aortic stenosis. Recommend echocardiogram. 3. Hypertension. The patient is on amlodipine. 4. Diabetes. The patient is on insulin. 5. End-stage renal disease. The patient is on peritoneal dialysis. 6. Previous tobacco abuse. 7. Anemia. No recent bleeding. <ELECTRONICALLY SIGNED> By: Rory Carter MD, [facility] 07/14/21 1503 0820 [id number] Carter MD, [facility] /nt
[2021-07-15] VITALS: BP 110/53
[2021-07-15 02:06] LABS: GLYCOHEMOGLOBIN (HGB A1C) 6.9 % (4.8-5.6)
[2021-07-15 04:00] VITALS: BP 146/62
[2021-07-15 05:04] LABS: HEMATOCRIT 24.6 % (37.0-47.0); HEMOGLOBIN 8.2 gm/dL (12.0-15.0); MCH 30.8 pg (26.0-34.0); MCHC 33.4 g/dL (28.0-37.0); MCV 92.2 fL (80.0-100.0); MPV 6.4 fl. (7.2-11.1); RBC 2.66 mil/uL (4.20-5.00); RDW-CV 17.6 % (10.5-14.5); WBC 10.4 thou/uL (4.0-11.0)
[2021-07-15 05:16] LABS: ANION GAP 14 mmol/L (7-16); BUN 57 mg/dL (7-18); CALCIUM 9.2 mg/dL (8.5-10.1); CHLORIDE 99 mmol/L (98-107); CHOLESTEROL 161 mg/dL (<200); CO2 23 mmol/L (21-32); CREATININE 5.3 mg/dL (0.6-1.3); GLUCOSE 125 mg/dL (70-99); HDL CHOLESTEROL 40 mg/dL (>40); LDL CHOLESTEROL 93 mg/dL (<100); POTASSIUM 4.3 mmol/L (3.5-5.1); SODIUM 136 mmol/L (136-145); TRIGLYCERIDE 140 mg/dL (<150); VLDL 28 mg/dL (<40)
[2021-07-15 05:25] LABS: SERUM ASSESSMENT CLEAR
--- NOTE | 2021-07-15 06:08 | NUR ---
Pt. alert and oriented X4. Pt. at times anxious. Reported pain in abdomen, Morphine given as ordered with relief. Pt. NSR on tele monitor, BP within limits. Pt on 4L NC, maintaining O2 sats above 90%. Pt. voiding appropriately, Purwik in place. Peritoneal Dialysis completed at 2200. LUQ site clean, dry and intact. ACHS blood sugar checks with insulin sliding scale as ordered. ALl questions and concerns addressed. Call light within reach, fall precautions in place. Will continue to monitor.
[2021-07-15 08:00] VITALS: BP 167/81
--- NOTE | 2021-07-15 11:07 | NUR ---
THE PATIENT IS ALERT. ABLE TO MAKE NEEDS KNOWN. CALL LIGHT WITHIN REACH. DENIES CP OR SOB.
[2021-07-15 12:21] VITALS: BP 130/54
--- NOTE | 2021-07-15 15:15 | NUR ---
[place]. CM spoke with Pt's dtr. Known to this CM from previous hospital stay. Pt is A&O. Resides at home alone. Pt does home PD, follows through [facility]. Pt uses a walker for mobility. Hx of [facility]. Hx of SNF at [facility]. Dtr provides transportation. Pt currently on 2.5L o2, does not use at home. Goal is home at de, no needs anticipated.
[2021-07-15 16:24] VITALS: BP 125/729
[2021-07-15 20:00] VITALS: BP 125/64
[2021-07-16] VITALS (18 sets, daily range): BP systolic 111–159; BP diastolic 42–62
--- NOTE | 2021-07-16 09:24 | EKG ---
[place] [address] ELECTROCARDIOGRAM REPORT Name: JIGNAKARAN Jayme Room: [address] IN ..#: [id number] Admission: 07/14/21 Attend Phys: Donte Gomez Discharge: Date of : 40 Date of Service: 07/15/21 1643 Report #: [id number] THIS REPORT FOR: //name// [facility] Test Date: 2021-07-15 Test Time: 16:43:09 Pat Name: KARAN BENITO Department: Room: [facility] Gender: F Data Entry Manager: DOV : 1940 Requested By: Rory Carter Order Number: [id number] Reading MD: Rory Carter Measurements Intervals [place] Rate: 71 P: 96 KS: 178 QRS: 73 QRSD: 91 T: 27 QT: 410 QTc: 446 Interpretive Statements Sinus rhythm nonspecific st segment changes Posterior infarct, old Compared to ECG 07/14/2021 06:24:58 Myocardial infarct finding now present Prolonged QT interval no longer present Electronically Signed On 07-16-2021 9:24:04 CDT by Rory Carter [email or web address] <ELECTRONICALLY SIGNED> By: Rory Carter MD, [facility] 07/16/21 0924 1643 1643 Rory Carter MD, [facility] /EPI
[2021-07-16 09:30] LABS: HEMATOCRIT 24.2 % (37.0-47.0); HEMOGLOBIN 8.4 gm/dL (12.0-15.0)
--- NOTE | 2021-07-16 11:05 | NUR ---
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 Radial checks in place q 15 min. Vitals q 15 min x 2 hours then 30 min x 2 hours. The patient is alert. Denies CP or SOB. Call light within reach.
--- NOTE | 2021-07-16 11:17 | CON ---
[address] [address] CONSULTATION Name: KARAN BENITO Room: [address] IN .R.#: [id number] Admission: 07/14/21 Attend Phys: Stuart Hernadez Discharge: Date of : 40 Report #: [id number] THIS REPORT FOR: cc: Kush Gresham John E. DO Vasudeva, Amita MD ~ DATE OF CONSULTATION: 07/14/2021 NEPHROLOGY CONSULTATION CONSULTING PHYSICIAN: Sayra Waters MD. REASON FOR NEPHROLOGY CONSULTATION: ESRD, on peritoneal dialysis. REASON FOR ADMISSION: Shortness of breath and chest pain. HISTORY OF PRESENT ILLNESS: This is an 80-year-old female with history of diabetes, ESRD and the patient is on PD, hypothyroidism, esophageal reflux disease, came in with shortness of breath. Her COVID is being checked. Chest x-ray shows evidence of some fluid overload. She is being ruled out for IA. She had a last dialysis on Monday and reports no complications with that. Her blood glucose is running high. ALLERGIES: SULFA. REVIEW OF SYSTEMS: As mentioned in history of present illness and otherwise 10-point review of systems are negative. FAMILY HISTORY: Noncontributory to current illness. SOCIAL HISTORY: Denies any tobacco use, occasional alcohol use, denies any drug use. PAST MEDICAL AND SURGICAL HISTORY: Includes hypertension. She has ESRD, on peritoneal dialysis, tonsillectomy, left foot surgery, diverticulosis, GERD, heart cath, 2 fibroid cysts removed from her breast, hysterectomy, cholecystectomy, appendectomy, depression, diabetes mellitus and hypothyroidism. MEDICATIONS: At home, which include amlodipine, donepezil, levothyroxine, aspirin, cetirizine, amitriptyline, Bacillus coagulans, sodium bicarbonate, dicyclomine, omeprazole, RenaPlex, Levemir and insulin lispro. PHYSICAL EXAMINATION: VITAL SIGNS: Blood pressure is 137/52, temperature 35.9, pulse rate 98, respiratory rate is 29, and pulse ox 98% on 4 liters oxygen [place] [address] CONSULTATION Name: JIGNAKARAN Jayme Room: [address] IN [facility]#: [id number] Admission: 07/14/21 Attend Phys: Stuart Hernadez Discharge: Date of : 40 Report #: [id number] GENERAL: She is awake and alert and oriented x 3. She is tachypneic. HEAD AND EYES: Atraumatic and normocephalic. Conjunctivae normal. EARS, NOSE, AND THROAT: Normal ears and nose. Mucous members are moist. NECK: No JVD. CHEST: Bilateral decreased breath sounds posteriorly. CARDIAC: S1, S2 normal. No murmurs. ABDOMEN: Soft, nondistended, nontender. LOWER EXTREMITIES: There is no lower extremity edema. DIALYSIS ACCESS: She has a fistula in her left arm, which has a good bruit. She has a PD catheter intact in her belly, exit site looks good. NEUROLOGIC: Function grossly intact. LABORATORY DATA: WBC 7.8, hemoglobin is 8.2. Sodium is 130, potassium is 3.4, BUN 63. Other labs are reviewed. IMAGING: Chest x-ray was reviewed. ASSESSMENT: 1. End-stage renal disease, on peritoneal dialysis. 2. The patient comes in with shortness of breath and chest pain, being ruled out for myocardial infarction, chest x-ray shows evidence of pulmonary vascular congestion. 3. Anemia of chronic kidney disease. 4. Constipation. 5. Hypertension. Blood pressure seems to be controlled. 6. Diabetes type 2. We will defer to Internal Medicine for management. 7. Hypothyroidism. 8. Obesity. 9. Gastroesophageal reflux disease. 10. Chronic obstructive pulmonary disease exacerbation. We will defer to Internal Medicine for management of that. PLAN: 1. We will give her erythropoietin to help with her anemia. 2. She is going to undergo peritoneal dialysis tonight. We will hook her up early this evening. We will use one 4.25% bag for more UF. Otherwise, she uses 2 liters dwell volumes, each dwell is 1 hour 15 minutes and about 4 cycles. 3. Potassium is low at 3.4, replaced. 4. Hyponatremia, likely in the setting of impaired free water excretion. 5. Avoid morphine [place] the [place] [address] CONSULTATION Name: KARAN BENITO Room: [address] IN [facility].#: [id number] Admission: 07/14/21 Attend Phys: Stuart Hernadez Discharge: Date of : 40 Report #: [id number] Thank you for this consultation. We will continue to follow with you. Discussed with Dr. Waters and the patient and the patient's nurse. <ELECTRONICALLY SIGNED> By: Gemma Watkins MD 07/16/21 1117 0924 [id number] Watkins MD /nt
--- NOTE | 2021-07-16 15:30 | NUR ---
Vitals monitorted as order. Radial pulse checked as ordered.
--- NOTE | 2021-07-16 15:59 | NUR ---
Pt on 6L, ex ox to be completed prior to dc. 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
[2021-07-17 00:35] VITALS: BP 158/56
[2021-07-17 03:50] LABS: HEMATOCRIT 24.6 % (37.0-47.0); HEMOGLOBIN 8.1 gm/dL (12.0-15.0); MCH 30.8 pg (26.0-34.0); MCV 93.5 fL (80.0-100.0); MPV 6.4 fl. (7.2-11.1); RBC 2.63 mil/uL (4.20-5.00); RDW-CV 17.8 % (10.5-14.5); WBC 7.9 thou/uL (4.0-11.0)
[2021-07-17 04:18] LABS: CALCIUM 9.3 mg/dL (8.5-10.1); CREATININE 5.4 mg/dL (0.6-1.3)
[2021-07-17 04:32] VITALS: BP 145/43
--- NOTE | 2021-07-17 07:54 | NUR ---
ASSUMED CARE OF PT AFTER REPORT AT 1930. PT A&OX4. VSS. PHYSICAL ASSESSMENT COMPLETED AND CHARTED. PT ON O2 AT 4L NC. PT TRACING SR ON TELE. PT UPSTANDBY TO BSC. PT DENIES PAIN. ONGOIN PD. FALL PRECAUTIONS IN PLACE. CALL LIGHT WITHIN REACH.
[2021-07-17 08:00] VITALS: BP 160/54
[2021-07-17 12:00] VITALS: BP 151/85; BP 152/52
[2021-07-17 16:00] VITALS: BP 116/50; BP 133/67
[2021-07-17 20:00] VITALS: BP 142/54
[2021-07-18] VITALS: BP 133/51
[2021-07-18 04:00] VITALS: BP 148/54
--- NOTE | 2021-07-18 05:47 | NUR ---
PATIENT SLEPT MOST OF THE NIGHT. IV REMAINS SALINE LOCKED. PATIENT HAS BEEN HOOKED UP TO PERITONEAL DIALYSIS OVER NIGHT. PATIENT IS ON OXYGEN AT 4-5 L PER NASAL CANNULA. WILL CONTINUE TO MONITOR.
[2021-07-18 08:10] VITALS: BP 157/65
[2021-07-18 08:10] LABS: HEMATOCRIT 23.7 % (37.0-47.0); HEMOGLOBIN 8.1 gm/dL (12.0-15.0); MCH 31.9 pg (26.0-34.0); MCHC 34.2 g/dL (28.0-37.0); MCV 93.2 fL (80.0-100.0); MPV 6.7 fl. (7.2-11.1); RBC 2.54 mil/uL (4.20-5.00); RDW-CV 17.4 % (10.5-14.5); WBC 8.7 thou/uL (4.0-11.0)
[2021-07-18 08:20] LABS: CALCIUM 9.6 mg/dL (8.5-10.1); CREATININE 5.8 mg/dL (0.6-1.3)
[2021-07-18 12:00] VITALS: BP 172/75
[2021-07-18] MEDS ORDERED: CLOPIDOGREL75 MG PO (14:35)
[2021-07-18] MEDS ORDERED: CARVEDILOL3.125 MG PO (14:35)
[2021-07-18] MEDS ORDERED: LIPITOR 40 MG T40 M1 PO (14:35)
[2021-07-18 16:00] VITALS: BP 144/58
--- NOTE | 2021-07-18 18:29 | NUR ---
PATIENT HAS REMAINED A&OX4, PLEASANT AND COOPERATIVE WITH CARES THIS SHIFT. MEDICATIONS ADMINISTERED ORDERED. PATIENT NONCOMPLIANT AT TIMES WITH NASAL CANNULA AND WILL REMOVE IT. PATIENT CURRENTLY RECEIVING PERITONEAL DIALYSIS IN ROOM. BED ALARM ON FOR PATIENT SAFETY. CALL LIGHT AND FREQUENTLY USED ITEMS WITHIN REACH.
[2021-07-18 20:00] VITALS: BP 147/58
[2021-07-19] VITALS: BP 114/55
[2021-07-19 04:12] VITALS: BP 108/50
--- NOTE | 2021-07-19 05:29 | NUR ---
PATIENT SLEPT MOST OF THE NIGHT. IV REMAINS SALINE LOCKED. PATIENT REMAINS ON OXYGEN AT 5L PER NC. PATIENT WAS GIVEN PAIN AND NAUSEA MEDICINE ONCE THIS SHIFT FOR ABDOMINAL PAIN. WILL CONTINUE TO MONITOR.
[2021-07-19 09:57] VITALS: BP 104/51
[2021-07-19 11:57] VITALS: BP 165/75
[2021-07-19 16:35] VITALS: BP 145/56
--- NOTE | 2021-07-19 17:47 | NUR ---
PT A&Ox4. DYALISIS STARTED. MORPHINE FOR PAIN. DENIED NAUSEA. UP WITH 1 TO CHAIR. ON 6LO2. VITALS STABLE. IV PATENT. FALL PRECAUTIONS IN PLACE. WILL CONTINUE TO MONITOR.
[2021-07-19 20:00] VITALS: BP 126/55
--- NOTE | 2021-07-19 20:00 | NUR ---
RECEIVED REPORT AND ASSUMED CARE OF PT, ASSESSMENT COMPLETED. C/O PAIN TO PERITONEAL DIAYLSIS SITE, REASSURANCE GIVEN. O2 ON AT 6L/HFC. NO SOA NOTED AT THIS TIME. TELEMETRY ON SHOWING SR. WILL CONT TO MONITOR AND ASSIST NEEDED.
[2021-07-20 00:41] VITALS: BP 130/60
[2021-07-20 04:00] VITALS: BP 110/49
--- NOTE | 2021-07-20 06:19 | NUR ---
SLEPT FAIRLY WELL TONIGHT. TURNS SELF IN BED FOR COMFORT. NO CHANGE IN ASSESSMENT. HS GOALS OF REST AND COMFORT ACHIEVED.
[2021-07-20 08:00] VITALS: BP 136/49
[2021-07-20 12:00] VITALS: BP 125/50
--- NOTE | 2021-07-20 14:34 | NUR ---
Anticipate dc tomorrow. Pt on 6L o2, will need ex ox at dc. Cxr today. Current with [facility]
--- NOTE | 2021-07-20 15:57 | NUR ---
RN RECEIVED CARE OF PT AT 0700. PT HAD NOTICEABLE DECLINE IN RESPIRATORY STATUS SINCE THIS RN LAST TOOK CARE OF HER. THIS RN MENTIONED THIS TO THE PROVIDER WHEN HE WAS AT THE BEDSIDE. PROVIDER AGREED THAT 6L HF NC IS A CHANGE FROM ROOM AIR AT BASELINE. PROVIDER PLACED ORDERS FOR A STAT CHEST XR AND RN WILL PROCEED APPROPRIATE FROM THERE. PT IS A&ox4, AFEBRILE, HAS COMPLAINTS OF PAIN IN LUQ/L BREAST AREA. RN MADE PROVIDER AWARE OF THIS CHANGE WELL. RN ADMINISTERED PRESCRIBED HYDROCODONE FOR PAINH RELIEF. PT NO LONGER DISCHARGING HOME UNTIL RESPIRATORY STATUS CAN BE MORE CLOSER TOWAREDS PT'S BASELINE. VSS. WILL CONTINUE TO MONITOR AND ACCESS FOR CHANGES.
[2021-07-20 16:00] VITALS: BP 119/56
[2021-07-20 20:15] VITALS: BP 116/52
[2021-07-21 00:07] VITALS: BP 131/47
[2021-07-21 04:00] VITALS: BP 125/50
--- NOTE | 2021-07-21 06:52 | NUR ---
PT SLEPT OFF AND ON OVERNIGHT. RECEIVING PERITONEAL DIALYSIS OVERNIGHT. CO ABD PAIN AND NAUSEA AT TIMES, PRN MEDICATIONS GIVEN ORDERED. PT HAD 200ML EMESIS DARK GREEN LIQUID X1. HS ACCUCHECK 213, INSULIN GIVEN ORDERED. BP ON LEG, LIMB ALERTS TO R AND L ARMS. RWRIST SL IV. L ARM FISTULA. O2 NEEDS FLUCTUATED OVERNIGHT, RT TX GIVEN ORDERED, O2 9L THIS MORNING. PT AO, FORGETFUL. NO LABS THIS MORNING. TELE SR. ABLE TO USE CALL LITE AND MAKE NEEDS KNOWN.
[2021-07-21 11:45] VITALS: BP 125/43
--- NOTE | 2021-07-21 11:49 | NUR ---
Pt up to 10L, continue to wean. KUB today. IVabx. Dr recommending SNF at in. CM to discuss with Pt and dtr.
--- NOTE | 2021-07-21 12:59 | NUR ---
Nutrition: Pt admitted with NSTEMI. Seen for LOS. Pt stated she has N/V and poor intake today. She ate last night, tuna sandwich and soup. She said she is drinking liquids well. She wants Ensure. I will order Nepro for added nutri- tion when her meal intake is low. She also wanted some ice cream right now - I gave her a cup of vanilla ice cream. Wt is at her usual 175#. H/o ESRD on PD, COPD, DM, HTN, OBE, GERD. Labs: BUN 54, cr 5.8, GFR 7, alb 2.9, BG 234. Mild risk at this time. Hopeful for increased appetite once N/V subsides.
[2021-07-21 16:57] VITALS: BP 108/49
[2021-07-21 20:00] VITALS: BP 108/54
[2021-07-22] VITALS (7 sets, daily range): BP systolic 90–123; BP diastolic 42–76
[2021-07-22 04:14] LABS: HEMATOCRIT 26.4 % (37.0-47.0); HEMOGLOBIN 8.8 gm/dL (12.0-15.0); MCH 31.1 pg (26.0-34.0); MCHC 33.4 g/dL (28.0-37.0); MCV 93.1 fL (80.0-100.0); MPV 7.3 fl. (7.2-11.1); RBC 2.84 mil/uL (4.20-5.00); RDW-CV 17.8 % (10.5-14.5); WBC 13.7 thou/uL (4.0-11.0)
[2021-07-22 04:28] LABS: CALCIUM 10.4 mg/dL (8.5-10.1); CREATININE 9.3 mg/dL (0.6-1.3); POTASSIUM 4.3 mmol/L (3.5-5.1)
--- NOTE | 2021-07-22 06:59 | NUR ---
PT HAD LESS NAUSEA OVERNIGHT, NO VOMITING. PRN NAUSEA MEDS GIVEN AND PT SLEPT WELL AFTER MIDNIGHT. PERITONEAL DIALYSIS COMPLETED OVERNIGHT. PT UP WITH MAX ASSIST UP TO BSC. O2 7L NC. TELE SR. R AND L LIMB ALERTS, BP ON LEG. AM LABS DRAWN. ABLE TO USE CALL LITE AND MAKE NEEDS KNOWN.
--- NOTE | 2021-07-22 10:27 | NUR ---
THE PATIENT IS ALERT. ABLE TO MAKE NEEDS KNOWN. DENIES CP OR SOB. CALL LIGHT WITHIN REACH. SR ON THE MONITOR.
--- NOTE | 2021-07-22 12:43 | NUR ---
CM spoke with Pt regarding SNF, Pt in agreement that she is too weak to return directly home. Pt stated that she wants to go to [facility], CM faxed referral. Anticipate that Pt will be medically stable to tx tomorrow. Will need acceptance and insurance auth. [facility] p:[phone] f:[phone]
--- NOTE | 2021-07-22 13:00 | NUR ---
The patient was bladder scanned she has 1ml in her bladder.
--- NOTE | 2021-07-22 15:25 | CARD ---
[address] [address] CARDIAC CATH REPORT Name: KARAN BENITO Room: [address] IN [facility]#: [id number] Admission: 07/14/21 Attend Phys: Stuart Hernadez Discharge: Date of : 40 Report #: [id number] THIS REPORT FOR: cc: Kush Gresham John E. DO Blick, David R. MD [facility] ~ APPROVED REPORT Study performed: 07/16/2021 08:45:30 Patient Details Patient Status: In-Patient Room #: The patient is a 80 year-old female Event Personnel Rory Carter MD: Discharge Door Operator Kika Jules, RN Discharge Door Operator Genie Bae, RN : Monitor Nils Walters RTR Scrub Procedures Performed Access- Right Radial Artery, Diagnostic cardiac catheterization, Hemostasis- Hemoband Indication Non-STEMI , Chest pain Risk Factors Arterial Hypertension, Diabetes Tobacco History (), Dialysis Admission/Lab Medications/Medications given during procedure Heparin Unfract. Procedure Narrative The patient was brought electively to the Cardiac Catheterization Laboratory and was prepped and draped in a sterile manner. The right wrist was infiltrated with 2% Lidocaine subcutaneous anesthesia. A 6 Fr slender glide sheath was inserted into the right radial artery. Coronary angiography was performed using coronary diagnostic catheters. The right coronary system was accessed and visualized with a Diagnostic 6 Fr 3DRC catheter. The left coronary system was accessed and visualized with a Diagnostic 6 Fr JL4 catheter. The left ventricle was accessed and visualized with a Diagnostic 6 Fr JR [address] [address] CARDIAC CATH REPORT Name: KARAN BENITO Room: [address] IN [facility].#: [id number] Admission: 07/14/21 Attend Phys: Stuart Hernadez Discharge: Date of : 40 Report #: [id number] catheter. Left ventricular/Aortic Valve gradient assessed via catheter pullback. Closure device was deployed with a 6 Fr vascband. The patient tolerated the procedure well and there were no complications associated with the procedure. There was no hematoma. Due to abnormal takeoff, unable to cannulate the RCA with a 6 fr JR4 catheter. Was able to cannulate with a 6 Fr 3DRC catheter. Intraoperative Conscious Sedation Fentanyl 25.0 mcg No sedation was given. Case start time 09:38 and case end was 10:07. Fluoro Time: 7.4 minutes Dose: DAP 25789 cGycm2 1087 mGy Contrast Type and Amount: Visipaque 110 ml Coronary Angiography The patient's coronary anatomy is right dominant. Diagnostic Cath Left Main 0% stenosis LAD 60% proximal and 70% mid stenosis noted Circumflex 30% distal stenosis noted Right Coronary 60% mid stenosis Left Ventriculography Left Ventriculography was not performed. Hemodynamics The aortic pressure is 112/40 mmHg with a mean of 68 mmHg. The left ventricular pressure is 137/0 mmHg with a mean of mmHg. The left ventricular end diastolic pressure is 12 mmHg. There was no gradient across the aortic valve upon pullback. Pullback from the left ventricle to the aorta revealed no gradient across the aortic valve. Conclusion 1. CAD with a 60% proximal and 70% mid stenosis of the LAD 2. 60% stenosis of the mid RCA Recommendations Cardiac Rehabilitation Referral [facility] [place] [address] CARDIAC CATH REPORT Name: KARAN BENITO Jayme Room: [address] IN ..#: [id number] Admission: 07/14/21 Attend Phys: Stuart Hernadez Discharge: Date of : 40 Report #: [id number] Medications Administered Clopidogrel <ELECTRONICALLY SIGNED> By: Rory Carter MD, FACC 07/22/21 1525 1525 1525Rory Carter MD, FACC /INF
--- NOTE | 2021-07-22 22:30 | NUR ---
PT BLADDER SCAN 240, ASKING FOR BEDPAN AFTER AND VOIDING 100MLS.
[2021-07-23] VITALS (8 sets, daily range): BP systolic 94–132; BP diastolic 49–62
[2021-07-23 05:35] LABS: CREATININE 10.2 mg/dL (0.6-1.3); MAGNESIUM 2.6 mg/dL (1.8-2.4); PHOSPHORUS* 10.3 mg/dL (2.5-4.9); POTASSIUM 5.2 mmol/L (3.5-5.1)
--- NOTE | 2021-07-23 06:28 | NUR ---
PT SLEPT WELL OVERNIGHT, RECEIVING ZOFRAN AND PO NAUSEA MED ONCE FOR NAUSEA WITHOUT EMESIS. PT INCONTINENT 2 MODERATE LOOSE BROWN BMS OVERNIGHT, LATOSHA CARE GIVEN AND BARRIER CREAM APPLIED. PT WEAK, UNABLE TO STAND TO PIVOT TO COMMODE WITH ASSIST. USING BED LEON TO VOID 100ML. BLADDER SCAN OBTAINED THIS MORNING 130, AFTER INCONTINENT EPISODE WITH BM. TELE SR. OVERNIGHT PD COMPLETED WITHOUT ALARMS. AM LABS DRAWN. O2 5L. PT STATES HER ABDOMEN FEELS A LITTLE BETTER THIS MORNING AFTER HAVING BMS OVERNIGHT. RWRIST SL, LASIX GIVEN ORDERED. R AND L ARM LIMB ALERT, BP ON LEG. CALL LITE IN EASY REACH, ABLE TO MAKE NEEDS KNOWN.
--- NOTE | 2021-07-23 14:43 | NUR ---
THE PATIENT WAS BLADDER SCANNED AND IT WAS 182ML. MD WAS CONTACTED.
--- NOTE | 2021-07-23 15:32 | NUR ---
No weekend dc. Renal following, Pt may need to transition to HD, dialysis today. On 5L. Plan SNF at ut. Cm spoke with [facility], they are unable to accept any insurances at this time, since they changed their name to [facility]. Pt will need to pick an alternate SNF facility, Pt did not feel like discussing today.
[2021-07-24 02:31] VITALS: BP 100/54
[2021-07-24 02:34] VITALS: BP 100/54
--- NOTE | 2021-07-24 04:18 | NUR ---
PT SLEPT ALL NIGHT. MODERATE URINE OUTPUT, LIQUID LOOSE STOOL OVERNIGHT, INCONTINENT. BLADDER SCAN 137 MLS RESIDUALS. SHE IS ALERT AND ORIENTED, FLAT AFFECT. 5L-O2, Q2 TURN, WEAKNESS, NAUSEA. NO FURTHER NAUSEA OR PAIN REPORTED. SHE RECEIVED ALL MEDS SCHEDULED. WILL CONTINUE TO MONITOR.
[2021-07-24 05:23] VITALS: BP 119/52
--- NOTE | 2021-07-24 05:29 | NUR ---
PT REFUSED THIS MORNING LAB DRAW AFTER ONE ATTEMPT.
[2021-07-24 08:04] LABS: HEMATOCRIT 27.2 % (37.0-47.0); HEMOGLOBIN 9.2 gm/dL (12.0-15.0); MCH 31.8 pg (26.0-34.0); MCHC 33.8 g/dL (28.0-37.0); MPV 6.9 fl. (7.2-11.1); RBC 2.89 mil/uL (4.20-5.00); RDW-CV 17.3 % (10.5-14.5)
[2021-07-24 08:38] LABS: ALBUMIN 2.8 g/dL (3.4-5.0); MAGNESIUM 2.2 mg/dL (1.8-2.4); PHOSPHORUS* 9.2 mg/dL (2.5-4.9)
[2021-07-24 09:00] VITALS: BP 100/62
--- NOTE | 2021-07-24 14:12 | NUR ---
0855-PT TO DIALYSIS,NO C/O NAUSEA OR PAIN.WENT VIA BED.
--- NOTE | 2021-07-24 14:13 | NUR ---
1220-PT RETURNED FROM DIALYSIS,REPORTE SHE HAD 250CC FLUIDS REMOVED. PT HAD 3 INCONTINENCE EPISODES OF DIAHHREA WHILE IN DIALYSIS.OTHERWISE TOLERATED WELL.
[2021-07-24 17:17] VITALS: BP 90/45
--- NOTE | 2021-07-24 19:12 | NUR ---
1520-BLADDER SCANNED PT FOR URINE RETENTION 134ML NOTED.
[2021-07-24 20:15] VITALS: BP 97/48
[2021-07-25 02:08] VITALS: BP 117/62
--- NOTE | 2021-07-25 05:06 | NUR ---
PT SLEPT ALL SHIFT, BEDREST, WOKE UP WITH SOME CONFUSION TO WHERE SHE WAS DURING NIGHT BUT REORIENTED FAIRLY QUICKLY. ON HER LAST BLADDER SCAN AT 0400 THE URINE RESIDUAL WAS ABOUT 10 ML. SHE IS A Q2 TURN, INCONTINENT OF BOWEL. 5L-02, DESATS QUICKLY WHEN IT IS REMOVED. SHE IS ALERT WITH SOME CONFUSION RECEIVED MEDS ORDERED. SHE DOES NOT DRINK OR EAT MUCH AT ALL.
[2021-07-25 05:13] VITALS: BP 106/57
[2021-07-25 09:00] VITALS: BP 120/48
[2021-07-25 12:23] VITALS: BP 91/54
[2021-07-25 16:34] VITALS: BP 97/37
[2021-07-25 20:30] VITALS: BP 108/35
[2021-07-26] VITALS: BP 104/33
[2021-07-26 04:00] VITALS: BP 91/30
--- NOTE | 2021-07-26 04:12 | NUR ---
PT ON 5L-O2, BEDREST, INCONTINENT OF BOWEL AND BLADDER, ALERT AND ORIENTED WITH SOME CONFUSION AT NIGHT WHEN WOKE UP. I ENCOURAGED HYDRATION AND ENSURES. SHE DID NOT HAVE ANY NAUSEA THIS SHIFT, GAVE TYLENOL FOR BACK PAIN, REPOSITIONED FOR COMFORT. SHE RECEIVED ALL MEDS SCHEDULED. BLADDER SCAN OF 87 MLS OVERNIGHT.
[2021-07-26 08:00] VITALS: BP 92/64
[2021-07-26 12:00] VITALS: BP 101/66
[2021-07-27 00:25] VITALS: BP 110/43
[2021-07-27 05:00] VITALS: BP 131/43
[2021-07-27 06:34] LABS: CALCIUM 8.2 mg/dL (8.5-10.1); POTASSIUM 3.6 mmol/L (3.5-5.1)
[2021-07-27 08:28] VITALS: BP 126/48
--- NOTE | 2021-07-27 09:01 | NUR ---
CASI CONTACTED SANA WITH [facility] [phone] RE PT GETTING A CHAIR TIME FOR HD. SANA INDICATED THEY WILL HAVE TO BEGAN PROCESS AGAIN, SINCE TOO MUCH TIME HAS ELAPSED. ANDREW TO F/U WITH CASI WITH UPDATE. CASI SPK WITH PT DTR AND SHE [facility]. [facility] INDICATED THIS AM THEY DIDNT HAVE BEDS OF NOW WHEN CM CONTACTED ABOUT A DIFFERENT PT. DTR WANTED CM TO TRY SNF [place]. CM [facility]FERRALS TO [facility], [facility], AND [facility].
[2021-07-27 11:58] VITALS: BP 139/43
--- NOTE | 2021-07-27 14:09 | NUR ---
CASI SPK WITH KELSEY FROM [facility] WHO INDICATED THEY WOULD ACCEPT PT CLINICALLY, HOWEVER THEY DONT HAVE ANY BEDS. CASI LFT MESSAGE W/TANTUM FOR DYLON AT [facility].
[2021-07-27 16:46] VITALS: BP 134/50
[2021-07-27 20:25] VITALS: BP 143/39
[2021-07-28 00:51] VITALS: BP 130/39
[2021-07-28 04:00] VITALS: BP 106/47
--- NOTE | 2021-07-28 04:52 | NUR ---
PATEINT ABLE TO GET TO BSC WITH ASSISTANCE, 5L-O2, ALERT AND ORIENTED WITH SOME CONFUSION AT NIGHT. SHE RECEIVED TYLENOL AND NORCO PRN FOR BACK PAIN. SHE IS TOLERATING FOOD AND DRINKS WITHOUT ANY NAUSEA. SHE HAS HAD SOME ANXIETY AND BEEN CALLING OUT FOR VARIOUS REASONS THIS SHIFT. WILL CONTINUE TO MONITOR.
[2021-07-28 08:00] VITALS: BP 112/55
[2021-07-28 10:07] LABS: HEPATITIS B SURFACE AG Negative (Negative)
[2021-07-28 12:00] VITALS: BP 106/43
--- NOTE | 2021-07-28 13:28 | NUR ---
Pt medically stable to dc to skilled. CM spoke with Pt, Pt wants to return to [facility]. CM spoke with Ava at [facility], they will have a SNF bed tomorrow. Per [facility], Pt has 11 days remaining at 100%, CM explained to Pt and dtr how copay days work, post 20 SNF days. Pt will need to remain HD while in skilled, can transition back to PD post SNF stay, pending nephro recommendations. CM faxed copy of Pt's covid card. CM left for Maureen at [facility] to confirm TTS 1425 chairtime, await call back. Anticipate dc tomorrow.
--- NOTE | 2021-07-28 19:12 | NUR ---
IV REPLACED IN RIGHT FOREARM USING VEIN FINDER. GOT UP IN CHAIR FOR LUNCH. DIALYSIS THIS AFTERNOON. 1/2 LITER REMOVED. COOPERATIVE WITH CARE.
[2021-07-28 20:30] VITALS: BP 175/41
[2021-07-29 03:12] VITALS: BP 113/52
--- NOTE | 2021-07-29 05:06 | NUR ---
PT SLEPT WELL ALL SHIFT, SHE IS UP WITH ASSISTANCE TO BSC. ENCOURAGING FLUIDS, BP IS BECOMING MORE STABLIZED. SHE IS ALERT AND ORIENTED WITH SOME CONFUSION AT NIGHT. RECEIVED ALL MEDS SCHEDULED. RECEIVED NORCO AT BEDTIME FOR BACK PAIN. WILL CONTINUE TO MONITOR.
[2021-07-29 05:59] VITALS: BP 150/50
[2021-07-29 08:00] VITALS: BP 123/40
[2021-07-29 12:00] VITALS: BP 129/62
--- NOTE | 2021-07-29 13:50 | NUR ---
Pt dc delayed, plan dc to [facility] tomorrow. Updated SNF and dtr, Clemencia. Pt to start HD at [facility] on Monday, chair time info given to SNF and dtr. Faxed updated clinicals and flowsheets to [facility].
[2021-07-29 16:00] VITALS: BP 141/58
--- NOTE | 2021-07-29 18:14 | NUR ---
Assumed care at 0700. Pt is alert and oirented. Assesment done and charted. Pt had uneventful night. Pt used the bedside commode. Pt denied any pain. Pt is a dialysis patient. Possible dc tomorrow.
[2021-07-29 19:40] VITALS: BP 140/49
[2021-07-30 01:08] VITALS: BP 105/51
[2021-07-30 05:37] VITALS: BP 111/52
[2021-07-30] MEDS ORDERED: LEVOFLOXACIN500 MG PO (12:19)
[2021-07-30 12:25] VITALS: BP 147/52
--- NOTE | 2021-07-30 13:30 | NUR ---
Pt discharging to [facility] SNF today. 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 Chart copied. Faxed dc orders. CM confirmed with admissions that they are aware that [facility]. Updated Pt's dtr, Kanika of dispo. Pt in agreement with POC. Nurse report number is [id number]
--- NOTE | 2021-07-30 17:55 | NUR ---
[facility] care at 0730. Pt was in dialysis until 1030. Upon arrival, assessment was done and charted. Pt had some bowel movement today. AT 1500hour pt was discharged. Report called to the [facility] almanza. Before pt left the unit, IV was taking out and pt took her belongs with her.
== END 2021-07-30 15:15 | DRG 177 ==
LOC: M.ERS 22:57 → M.TBA-ER 07-14 01:17 → M.ORTHSURG 07-14 01:17 → M.2W 07-14 01:17 → M.ORTHSURG 07-14 15:02 → M.2W 07-17 08:23
PROVIDERS: Emergency Medicine; Family Medicine; Internal Medicine Cardiovascular Disease; Internal Medicine Nephrology; ADMIT Internal Medicine; ATTEND Internal Medicine
PROC: 3E1M39Z Irrigation of Peritoneal Cavity using Dialysate, Percutaneous Approach (ICD-10-PCS; 2021-07-15)
PROC: 4A023N7 Measurement of Cardiac Sampling and Pressure, Left Heart, Percutaneous Approach (ICD-10-PCS; principal; 2021-07-16)
PROC: B2111ZZ Fluoroscopy of Multiple Coronary Arteries using Low Osmolar Contrast (ICD-10-PCS; principal; 2021-07-16)
PROC: 5A0935A Assistance with Respiratory Ventilation, Less than 24 Consecutive Hours, High Flow/Velocity Cannula (ICD-10-PCS; 2021-07-20)
PROC: 5A0935A Assistance with Respiratory Ventilation, Less than 24 Consecutive Hours, High Flow/Velocity Cannula (ICD-10-PCS; 2021-07-21)
PROC: 3E1M39Z Irrigation of Peritoneal Cavity using Dialysate, Percutaneous Approach (ICD-10-PCS; 2021-07-22)
PROC: 5A0935A Assistance with Respiratory Ventilation, Less than 24 Consecutive Hours, High Flow/Velocity Cannula (ICD-10-PCS; 2021-07-22)
PROC: 5A1D70Z Performance of Urinary Filtration, Intermittent, Less than 6 Hours Per Day (ICD-10-PCS; 2021-07-23)
PROC: 5A1D70Z Performance of Urinary Filtration, Intermittent, Less than 6 Hours Per Day (ICD-10-PCS; 2021-07-24)
PROC: 5A0935A Assistance with Respiratory Ventilation, Less than 24 Consecutive Hours, High Flow/Velocity Cannula (ICD-10-PCS; 2021-07-25)
PROC: 5A1D70Z Performance of Urinary Filtration, Intermittent, Less than 6 Hours Per Day (ICD-10-PCS; 2021-07-26)
PROC: 5A1D70Z Performance of Urinary Filtration, Intermittent, Less than 6 Hours Per Day (ICD-10-PCS; 2021-07-28)
PROC: 5A1D70Z Performance of Urinary Filtration, Intermittent, Less than 6 Hours Per Day (ICD-10-PCS; 2021-07-30)
DX: J15.6 Pneumonia due to other Gram-negative bacteria (principal); I21.4 Non-ST elevation (NSTEMI) myocardial infarction; N18.6 End stage renal disease; I12.0 Hypertensive chronic kidney disease with stage 5 chronic kidney disease or end stage renal disease; J44.0 Chronic obstructive pulmonary disease with (acute) lower respiratory infection; J44.1 Chronic obstructive pulmonary disease with (acute) exacerbation; I25.10 Atherosclerotic heart disease of native coronary artery without angina pectoris; Z99.2 Dependence on renal dialysis; E11.22 Type 2 diabetes mellitus with diabetic chronic kidney disease; Z79.4 Long term (current) use of insulin; D63.1 Anemia in chronic kidney disease; K21.9 Gastro-esophageal reflux disease without esophagitis; E03.9 Hypothyroidism, unspecified; K59.00 Constipation, unspecified; Z68.34 Body mass index [BMI] 34.0-34.9, adult

== ENCOUNTER 2021-08-05 19:25 | Inpatient (IN) | payer MEDICARE ==
[~2021-08-05] VITALS: Ht 162.6 cm; Wt 78.9 kg
--- NOTE | ~2021-08-05 | PROC ---
[address] [address] PROCEDURE REPORT Name: JIGNAKARAN M Room: [address] IN M.R.#: [id number] Admission: 08/05/21 Attend Phys: Sayra Waters MD Discharge: Date of : 40 Report #: [id number] THIS REPORT FOR: cc: Kush Gresham John E. DO [facility],Medical Records Staff ~ For GI report, please see the Provation report in Perceptive 7 content. By: 0655Medical Records Staff JOÃO /MADALYN
[~2021-08-05 19:25] MED LIST changes: +CARVEDILOL3.125 MG PO; +CLOPIDOGREL75 MG PO; +DONEPEZIL HCL 55 M1 PO; +HUMALOG100 UNIT/1 SUBQ; +LEVOFLOXACIN500 MG PO; +LEVOXYL150 MCG PO; +LIPITOR 40 MG T40 M1 PO; +LOW DOSE ASPIRI81 M1 PO; +NOVOLIN 70100 UNIT/5 SUBQ; +RENAPLEX-D TAB1 EACH PO; +ZYRTEC10 M5 PO
[2021-08-05 19:26] VITALS: BP 144/44
[2021-08-05 19:51] LABS: ABSOLUTE BASOPHILS 0.1 thou/uL (0.0-0.2); ABSOLUTE EOSINOPHILS 0.2 thou/uL (0.0-0.7); ABSOLUTE LYMPHOCYTES 1.4 thou/uL (0.8-5.3); ABSOLUTE MONOCYTES 0.3 thou/uL (0.0-1.2); ABSOLUTE NEUTROPHILS 4.8 thou/uL (1.6-8.1); BASOPHILS 0.7 %; EOSINOPHILS 2.7 %; LYMPHOCYTES 21.2 %; MCH 32.3 pg (26.0-34.0); MCHC 34.2 g/dL (28.0-37.0); MCV 94.5 fL (80.0-100.0); MPV 6.7 fl. (7.2-11.1); NUCLEATED RBCS 0 /100WBC; PLATELET COUNT* 265 thou/uL (150-400); POLYS 70.4 %; RBC 2.11 mil/uL (4.20-5.00); WBC 6.8 thou/uL (4.0-11.0)
[2021-08-05 19:55] LABS: HEMATOCRIT 19.9 % (37.0-47.0); HEMOGLOBIN 6.8 gm/dL (12.0-15.0)
[2021-08-05 20:19] LABS: CALCIUM 8.5 mg/dL (8.5-10.1); CREATININE 1.9 mg/dL (0.6-1.3); POTASSIUM 3.7 mmol/L (3.5-5.1)
[2021-08-05] MEDS ORDERED: PROZAC20 M1 PO (20:29)
[2021-08-05 20:30] LABS: ALBUMIN 2.9 g/dL (3.4-5.0); MAGNESIUM 1.7 mg/dL (1.8-2.4); TOTAL BILIRUBIN 0.5 mg/dL (<0.1-1.0); TOTAL PROTEIN 7.1 g/dL (6.4-8.2)
[2021-08-05] MEDS ORDERED: AMLODIPINE BESY10 MG PO (20:30)
[2021-08-05 20:46] LABS: URINE BILIRUBIN NEGATIVE (Negative); URINE BLOOD 1+ (Negative); URINE CLARITY CLEAR; URINE COLOR YELLOW; URINE GLUCOSE-RANDOM 2+ (Negative); URINE KETONES NEGATIVE (Negative); URINE LEUKOCYTES-REFLEX NEGATIVE (Negative); URINE NITRITE-REFLEX NEGATIVE (Negative); URINE PROTEIN 2+ (Negative); URINE SPECIFIC GRAVITY 1.015 (1.005-1.030); URINE UROBILINOGEN 0.2 E.U./dl (0.2-1.0)
[2021-08-05 20:54] LABS: MUCUS None Seen strn/LPF (None Seen); SQUAMOUS >10 Many /LPF (0-3)
[2021-08-05 20:56] LABS: URINE RBC 0-2 Rare /HPF (0-2)
[2021-08-05 20:57] LABS: URINE WBC-REFLEX 6-15 Few /HPF (0-5)
[2021-08-05 20:58] LABS: CRYSTALS None Seen /LPF (None Seen); HYALINE CASTS 0-3 Few /LPF (None Seen)
[2021-08-06] VITALS (7 sets, daily range): BP systolic 122–162; BP diastolic 48–67
[2021-08-06] MEDS ORDERED: LIPITOR10 MG PO (05:28)
[2021-08-06] MEDS ORDERED: NOVOLOG FL100 UNIT/M SUBQ (05:32)
[2021-08-06] MEDS ORDERED: LEVO-T50 MCG PO (05:34)
--- NOTE | 2021-08-06 09:40 | EKG ---
[place] [address] ELECTROCARDIOGRAM REPORT Name: KARAN BENITO Room: [address] ADM IN ..#: [id number] Admission: 08/05/21 Attend Phys: Sayra Waters MD Discharge: Date of : 40 Date of Service: 08/05/211927 Report #: [id number] THIS REPORT FOR: //name// [facility] ED Test Date: 2021-08-05 Test Time: 19:28:09 Pat Name: KARAN BENITO Department: Room: [facility] Gender: F Manager Decision Support: MR : [id number] Requested By: Martha Fabian Order Number: [id number] MD: Kush Nair Measurements Intervals [place] Rate: 94 P: 72 MA: 189 QRS: 18 QRSD: 96 T: 34 QT: 383 QTc: 479 Interpretive Statements Sinus rhythm Probable left atrial enlargement Left ventricular hypertrophy ST depr, consider ischemia, anterolateral lds Compared to ECG 07/15/2021 16:43:09 Left ventricular hypertrophy now present Possible ischemia now present Myocardial infarct finding no longer present Electronically Signed On 08-06-2021 9:40:23 CDT by Kush Nair [email or web address] <ELECTRONICALLY SIGNED> By: Kush Nair MD, [facility] 08/06/21939 27 27 Kush Nair MD, [facility] /EPI
[2021-08-07 00:35] VITALS: BP 145/56
[2021-08-07 04:31] VITALS: BP 116/56
[2021-08-07 07:49] LABS: CALCIUM 8.3 mg/dL (8.5-10.1)
[2021-08-07 07:50] LABS: CREATININE 4.6 mg/dL (0.6-1.3)
[2021-08-07 08:00] VITALS: BP 150/54
[2021-08-07 08:07] LABS: HEMATOCRIT 20.5 % (37.0-47.0); MCH 31.4 pg (26.0-34.0); MCV 92.5 fL (80.0-100.0); MPV 7.2 fl. (7.2-11.1); RBC 2.21 mil/uL (4.20-5.00); RDW-CV 17.8 % (10.5-14.5)
[2021-08-07 19:45] VITALS: BP 113/54
[2021-08-08] VITALS (7 sets, daily range): BP systolic 102–151; BP diastolic 40–56
[2021-08-08 03:58] LABS: ALBUMIN 2.3 g/dL (3.4-5.0); MAGNESIUM 1.6 mg/dL (1.8-2.4); POTASSIUM 4.3 mmol/L (3.5-5.1); TOTAL BILIRUBIN 0.4 mg/dL (<0.1-1.0); TOTAL PROTEIN 6.1 g/dL (6.4-8.2)
[2021-08-08 04:02] LABS: CREATININE 3.5 mg/dL (0.6-1.3)
[2021-08-08 04:06] LABS: MCH 31.6 pg (26.0-34.0); MCV 92.7 fL (80.0-100.0); RBC 2.12 mil/uL (4.20-5.00); RDW-CV 17.3 % (10.5-14.5)
[2021-08-08 04:13] LABS: HEMOGLOBIN 6.7 gm/dL (12.0-15.0)
[2021-08-08 04:14] LABS: HEMATOCRIT 19.6 % (37.0-47.0)
[2021-08-08 10:42] LABS: HEMATOCRIT 22.4 % (37.0-47.0); HEMOGLOBIN 7.6 gm/dL (12.0-15.0)
[2021-08-09 01:56] VITALS: BP 117/55
[2021-08-09 07:01] VITALS: BP 136/52
[2021-08-09 07:25] LABS: HEMATOCRIT 23.8 % (37.0-47.0); HEMOGLOBIN 8.1 gm/dL (12.0-15.0); MCH 31.5 pg (26.0-34.0); MCHC 33.9 g/dL (28.0-37.0); MCV 93.1 fL (80.0-100.0); RBC 2.55 mil/uL (4.20-5.00); RDW-CV 16.4 % (10.5-14.5); WBC 6.2 thou/uL (4.0-11.0)
[2021-08-09 07:57] LABS: ALBUMIN 2.4 g/dL (3.4-5.0); CALCIUM 8.8 mg/dL (8.5-10.1); POTASSIUM 3.9 mmol/L (3.5-5.1); TOTAL BILIRUBIN 0.3 mg/dL (<0.1-1.0); TOTAL PROTEIN 6.6 g/dL (6.4-8.2)
[2021-08-09 08:01] LABS: CREATININE 5.3 mg/dL (0.6-1.3)
[2021-08-09 08:16] VITALS: BP 151/65
[2021-08-09 12:00] VITALS: BP 145/65
--- NOTE | 2021-08-09 13:57 | CON ---
[address] [address] CONSULTATION Name: KARAN BENITO Room: [address] IN M.R.#: [id number] Admission: 08/05/21 Attend Phys: Sayra Waters MD Discharge: Date of : 40 Report #: [id number] THIS REPORT FOR: cc: Kush Gresham John E. DO Blick, David R. MD [facility] ~ DATE OF CONSULTATION: 08/09/2021 HISTORY OF PRESENT ILLNESS: The patient is an 80-year-old single white female who I was asked to see in the hospital today because of her history of coronary artery disease. The patient has a long history of diabetes, hypertension, hyperlipidemia. She developed end-stage renal disease, on hemodialysis, starting this past November. A few months ago, she was transitioned to nocturnal peritoneal dialysis. She was admitted to [facility] a month ago with chest pain. I saw her in consultation and because of risk factors, recommend cardiac catheterization that was performed on 07/16 from the right radial artery. Results of the arteriogram, no ventriculogram was performed. There was only 70% narrowing of the mid LAD, 30% narrowing of the circumflex and 60% narrowing of the right coronary artery. She is felt to have mild coronary artery disease. It is recommended she be treated medically. The patient was then discharged to a rehab center. Recently, she was found to be anemic. She was admitted to [facility]. Endoscopy was recommended. She denies any recent chest pain. She has been short of breath. She has been coughing. She denied palpitation or syncope. PAST MEDICAL HISTORY: She has had cholecystectomy, hysterectomy, cataract extraction, hypertension, diabetes, hyperlipidemia. CURRENT MEDICATIONS: Include insulin, amlodipine, aspirin, donepezil, insulin, Synthroid, omeprazole, sodium bicarbonate. ALLERGIES: SHE HAS PREVIOUS INTOLERANCE TO SULFA DRUGS. FAMILY HISTORY: Her mother was an alcoholic. SOCIAL HISTORY: She is . Used to live in [place], [place]. Quit smoking 20 years ago. No alcohol abuse. REVIEW OF SYSTEMS: She apparently had a TIA in the past. No history of asthma, liver disease. She has skin cancer removed in the past. No psychiatric illness. No chronic skin condition. PHYSICAL EXAMINATION: GENERAL: Revealed an elderly female lying in bed. She appeared in no distress. VITAL SIGNS: She had a blood pressure 140/60, pulse is 80. [place] [address] CONSULTATION Name: KARAN BENITO Room: [address]#: [id number] Admission: 08/05/21 Attend Phys: Sayra Waters MD Discharge: Date of : 40 Report #: [id number] HEENT: She was anicteric. Conjunctivae pink. Mucosa is moist. NECK: Veins do not appear distended. Neck was supple. CHEST: Clear to auscultation. HEART: Regular rate and rhythm. Grade 2 systolic ejection murmur. ABDOMEN: Soft. Peritoneal dialysis catheter in place. EXTREMITIES: Had no edema. SKIN: Cool and dry. NEUROLOGIC: Nonfocal. The patient had an echocardiogram performed a month ago that showed normal left ventricular function with mild concentric left ventricular hypertrophy. There was no evidence of aortic stenosis. Her lab work, she had a portable chest x-ray that showed chronic interstitial lung markings. Her lab work, BUN 32, creatinine 5.3. Liver function studies were normal. High sensitivity troponin was not performed. BNP 13,842. Her white blood cell count 6.2, hemoglobin 8.1, it was 6.8 on admission and she was transfused. Her COVID antigen stat test was negative. IMPRESSION AND RECOMMENDATIONS: 1. Coronary artery disease. Noted to be mild on recent heart catheterization. I would continue medical therapy. 2. Hypertension. The patient on amlodipine. 3. Diabetes. The patient is on insulin. 4. End-stage renal disease. The patient is on peritoneal dialysis. 5. Anemia. No cardiac contraindication to endoscopy. <ELECTRONICALLY SIGNED> By: Rory Carter MD, [facility] 08/09/21 1357 0829 0841Daelian Carter MD, FAC /nt
[2021-08-09 16:00] VITALS: BP 138/58
[2021-08-09 19:43] VITALS: BP 152/62
[2021-08-10] VITALS: BP 136/55
[2021-08-10 04:00] VITALS: BP 87/45
[2021-08-10 04:23] LABS: HEMATOCRIT 21.3 % (37.0-47.0); HEMOGLOBIN 7.2 gm/dL (12.0-15.0); MCH 31.3 pg (26.0-34.0); MCV 91.9 fL (80.0-100.0); MPV 7.2 fl. (7.2-11.1); RBC 2.31 mil/uL (4.20-5.00); RDW-CV 16.1 % (10.5-14.5); WBC 6.1 thou/uL (4.0-11.0)
[2021-08-10 04:30] LABS: ALBUMIN 2.2 g/dL (3.4-5.0); CALCIUM 8.6 mg/dL (8.5-10.1); CREATININE 5.8 mg/dL (0.6-1.3); MAGNESIUM 1.8 mg/dL (1.8-2.4); POTASSIUM 3.8 mmol/L (3.5-5.1); TOTAL BILIRUBIN 0.3 mg/dL (<0.1-1.0); TOTAL PROTEIN 6.2 g/dL (6.4-8.2)
[2021-08-10 08:00] VITALS: BP 149/65
[2021-08-10 15:34] VITALS: BP 155/65
[2021-08-10 20:42] VITALS: BP 131/48; BP 138/89
[2021-08-11] VITALS: BP 161/74
[2021-08-11 04:38] LABS: HEMATOCRIT 23.4 % (37.0-47.0); HEMOGLOBIN 8.1 gm/dL (12.0-15.0); MCH 31.5 pg (26.0-34.0); MCHC 34.4 g/dL (28.0-37.0); MCV 91.5 fL (80.0-100.0); MPV 6.6 fl. (7.2-11.1); RBC 2.56 mil/uL (4.20-5.00); RDW-CV 16.4 % (10.5-14.5); WBC 6.6 thou/uL (4.0-11.0)
[2021-08-11 05:09] LABS: ALBUMIN 2.5 g/dL (3.4-5.0); CALCIUM 8.6 mg/dL (8.5-10.1); MAGNESIUM 1.9 mg/dL (1.8-2.4); TOTAL BILIRUBIN 0.4 mg/dL (<0.1-1.0); TOTAL PROTEIN 6.8 g/dL (6.4-8.2)
[2021-08-11 05:10] LABS: CREATININE 3.8 mg/dL (0.6-1.3)
[2021-08-11 08:25] VITALS: BP 142/52
--- NOTE | 2021-08-11 15:41 | CON ---
[address] [address] CONSULTATION Name: KARAN BENITO Room: [address] IN M.R.#: [id number] Admission: 08/05/21 Attend Phys: Sayra Waters MD Discharge: Date of : 40 Report #: [id number] THIS REPORT FOR: cc: Kush Gresham John E. DO Namin, Farid M. MD ~ cc: Kush Gresham DO DATE OF CONSULTATION: 08/09/2021 Please note at the time of this dictation, the patient was seen and physically examined by myself. REASON FOR CONSULTATION: Acute anemia, 5.7. HISTORY OF PRESENT ILLNESS: This is an 80-year-old female who presented to the Emergency Room after going to dialysis and finding out that her hemoglobin was 5.7 on Monday. It is noted that in May of this year, the patient had a hemoglobin of 12. The patient states she has been having nausea and vomiting. She states she has not noticed any bright red blood or melanotic or coffee-ground emesis or any bloody stools or black stools. She states she does have some abdominal cramping in the lower areas. She does have a history of irritable bowel syndrome towards diarrhea, in which she has been taking dicyclomine at home. The patient also states she has been having some issues with acid reflux that has been ongoing for a while and having some epigastric discomfort as well. The patient was here in July and had a non-STEMI and has been on anticoagulant therapy, Plavix since that time. The patient believes that she has been taking her Prilosec for her heartburn when she was at [facility] for rehab. She has been noticing increased shortness of air, requiring some oxygen at 3 liters and has felt increased fatigue. When the patient arrived in the Emergency Room, she was 5.7 at the dialysis. She did get 2 units of blood that has brought her up to 8.1. The patient did undergo an EGD back in [address] Rojas that showed a small hiatal hernia. Back in 2005, she had a full colonoscopy that did show diverticulosis. ALLERGIES: SULFA. PAST MEDICAL HISTORY: Hypertension, diverticulosis, GERD, depression, type 2 diabetes, end-stage renal disease with dialysis and hypothyroidism. PAST SURGICAL HISTORY: Tonsillectomy, left foot surgery. She had a heart cath most recently in part july. She had fibroid cyst removed from her left breast, hysterectomy, cholecystectomy, appendectomy. FAMILY HISTORY: Negative for [place] [address] CONSULTATION Name: KARAN BENITO Room: [address] IN ..#: [id number] Admission: 08/05/21 Attend Phys: Sayra Waters MD Discharge: Date of : 40 Report #: [id number] SOCIAL HISTORY: The patient is currently living at [facility]. She denies any alcohol, illegal drug use or any tobacco use at this time. REVIEW OF SYSTEMS: Twelve-point review of systems is essentially negative except what is mentioned in the HPI. PHYSICAL EXAMINATION: VITAL SIGNS: Temperature 36.3, pulse 84, respirations 21, blood pressure 136/52. HEART: Regular rate and rhythm. LUNGS: Clear. ABDOMEN: Soft, positive bowel sounds in all 4 quadrants with tenderness in the epigastric and in the lower abdominal area. LABORATORY DATA: Hemoglobin is 8.1, white count is 6.2, platelets 239. BUN is 32, creatinine 5.3 and GFR of 8. Please note, hemoglobin in May of this year was 12. CT showed some thickened distal esophagus and moderate hiatal hernia. IMPRESSION: 1. Acute anemia. 2. Gastroesophageal reflux disease. 3. Nausea and vomiting, resolved. 4. Abnormal CT, esophageal thickening in the distal aspect. 5. Abdominal pain, both epigastric and lower with history of irritable bowel syndrome-diarrhea. 6. Anticoagulant therapy, Plavix, [id number] myocardial infarction. 7. Diabetes. 8. End-stage renal disease, dialysis Monday, , Monday. 9. Chronic obstructive pulmonary disease. PLAN: 1. EGD to occur on Monday since the patient had already eaten this morning and dialysis is tomorrow. We will obtain clearance from Cardiology, Dr. Carter who saw her the first part of the month. 2. Continue Protonix b.i.d. 3. Dicyclomine 10 mg before meals and at bedtime. 4. Further recommendations to be made after the patient has been seen by Dr. Owens later today. [address] [address] CONSULTATION Name: KARAN BENITO Room: [address] IN M.R.#: [id number] Admission: 08/05/21 Attend Phys: Sayra Waters MD Discharge: Date of : 40 Report #: [id number] Thank you for allowing us to participate in this patient's care. Please do not hesitate to call with any questions regarding this consult. <ELECTRONICALLY SIGNED> By: Hudson Owens MD 08/11/21 1541 0818 [id number] Owens MD /nt
[2021-08-11 16:50] VITALS: BP 120/51
[2021-08-11 19:17] VITALS: BP 150/63
[2021-08-12 00:13] VITALS: BP 147/62
[2021-08-12 04:01] VITALS: BP 159/57
[2021-08-12 04:35] LABS: HEMATOCRIT 24.1 % (37.0-47.0); HEMOGLOBIN 8.2 gm/dL (12.0-15.0); MCH 31.8 pg (26.0-34.0); MCHC 33.9 g/dL (28.0-37.0); MCV 93.6 fL (80.0-100.0); MPV 6.6 fl. (7.2-11.1); RBC 2.57 mil/uL (4.20-5.00); RDW-CV 16.4 % (10.5-14.5); WBC 5.8 thou/uL (4.0-11.0)
[2021-08-12 04:59] LABS: ALBUMIN 2.5 g/dL (3.4-5.0); CALCIUM 9.1 mg/dL (8.5-10.1); POTASSIUM 4.7 mmol/L (3.5-5.1); TOTAL BILIRUBIN 0.3 mg/dL (<0.1-1.0); TOTAL PROTEIN 6.9 g/dL (6.4-8.2)
[2021-08-12 05:03] LABS: CREATININE 5.2 mg/dL (0.6-1.3)
[2021-08-12 09:45] VITALS: BP 119/52
[2021-08-12 15:59] VITALS: BP 138/55
[2021-08-12 19:40] VITALS: BP 118/44
[2021-08-13 04:25] LABS: HEMATOCRIT 23.7 % (37.0-47.0); HEMOGLOBIN 8.1 gm/dL (12.0-15.0); MCH 31.9 pg (26.0-34.0); MCHC 34.3 g/dL (28.0-37.0); MCV 92.9 fL (80.0-100.0); MPV 6.7 fl. (7.2-11.1); RBC 2.55 mil/uL (4.20-5.00); RDW-CV 16.5 % (10.5-14.5); WBC 6.9 thou/uL (4.0-11.0)
[2021-08-13 04:49] LABS: ALBUMIN 2.7 g/dL (3.4-5.0); CALCIUM 9.3 mg/dL (8.5-10.1); MAGNESIUM 1.9 mg/dL (1.8-2.4); TOTAL BILIRUBIN 0.2 mg/dL (<0.1-1.0); TOTAL PROTEIN 6.9 g/dL (6.4-8.2)
[2021-08-13 04:51] LABS: CREATININE 3.4 mg/dL (0.6-1.3)
[2021-08-13 08:00] VITALS: BP 158/69
[2021-08-13 20:19] VITALS: BP 156/64
[2021-08-14 08:00] VITALS: BP 147/58
[2021-08-14 18:00] VITALS: BP 149/60
[2021-08-14 20:40] VITALS: BP 131/69
[2021-08-15 00:12] VITALS: BP 154/63
[2021-08-15 04:03] LABS: ABSOLUTE EOSINOPHILS 0.4 thou/uL (0.0-0.7); ABSOLUTE LYMPHOCYTES 1.6 thou/uL (0.8-5.3); ABSOLUTE MONOCYTES 0.5 thou/uL (0.0-1.2); ABSOLUTE NEUTROPHILS 4.5 thou/uL (1.6-8.1); BASOPHILS 0.6 %; EOSINOPHILS 5.6 %; HEMATOCRIT 26.5 % (37.0-47.0); HEMOGLOBIN 9.1 gm/dL (12.0-15.0); LYMPHOCYTES 22.3 %; MCH 31.9 pg (26.0-34.0); MCHC 34.2 g/dL (28.0-37.0); MCV 93.1 fL (80.0-100.0); MONOCYTES 7.7 %; MPV 6.5 fl. (7.2-11.1); NUCLEATED RBCS 0 /100WBC; PLATELET COUNT* 332 thou/uL (150-400); POLYS 63.8 %; RBC 2.85 mil/uL (4.20-5.00); RDW-CV 16.8 % (10.5-14.5)
[2021-08-15 04:13] LABS: ALBUMIN 2.8 g/dL (3.4-5.0); CALCIUM 8.9 mg/dL (8.5-10.1); POTASSIUM 3.5 mmol/L (3.5-5.1); TOTAL BILIRUBIN 0.3 mg/dL (<0.1-1.0); TOTAL PROTEIN 6.9 g/dL (6.4-8.2)
[2021-08-15 08:00] VITALS: BP 148/66
--- NOTE | 2021-08-15 12:25 | CON ---
[address] [address] CONSULTATION Name: KARAN BENITO Room: [address] IN .R.#: [id number] Admission: 08/05/21 Attend Phys: Sayra Waters MD Discharge: Date of : 40 Report #: [id number] THIS REPORT FOR: cc: Kush Gresham John E. DO Pervez, Adeel MD ~ DATE OF CONSULTATION: 08/14/2021 CONSULT REQUESTED BY: Sushant Parish MD INDICATION FOR CONSULTATION: Shortness of breath/pulmonary infiltrates. HISTORY OF PRESENT ILLNESS: This is an 80-year-old female. She does have an extensive previous history of smoking, which she discontinued in 1997. She does not carry a previous diagnosis of COPD. The patient has had end-stage renal disease. She has been on peritoneal dialysis and currently she is receiving hemodialysis. She was recently admitted to this hospital with chest pain and underwent cardiac catheterization, which showed a 70% narrowing of LAD and lesser magnitude lesions in other coronary arteries. I understand the plan per Cardiology is medical management. The patient now became anemic. Reports that she was checked as an outpatient and was noted to have a hemoglobin of 5.7. Upon arrival here, her hemoglobin was 6.8. She has been seen by the Hematology Service as well as GI. She has had an EGD. She was noted to have gastritis. At this time, she says that she still has some shortness of breath, but this is better. She is not coughing. She is not bringing up sputum. Does not have upper respiratory complaints. No swelling of lower extremities and no calf pain. REVIEW OF SYSTEMS: Her review of systems for 12 points is negative except as mentioned above. PAST MEDICAL HISTORY: End-stage renal disease, has been on peritoneal dialysis and currently receiving hemodialysis, coronary artery disease with lesions up to 70% in coronary arteries. The plan for Cardiology is conservative management. There is a recent echo, which shows a normal left ventricular ejection fraction without significant elevation in right heart pressures. Also, history of anemia, esophagitis, diabetes, hypertension, cataract extractions, hyperlipidemia, cholecystectomy, hysterectomy. CURRENT MEDICATIONS: List in [employer] reviewed. HOME MEDICATIONS: List [place] [employer] [place] [address] CONSULTATION Name: KARAN BENITO Room: [address]#: [id number] Admission: 08/05/21 Attend Phys: Sayra Waters MD Discharge: Date of : 40 Report #: [id number] SOCIAL HISTORY: There is an extensive history of smoking, discontinued in the late . No known history of heavy alcohol use. IMMUNIZATION HISTORY: She says that she has been vaccinated with 2 doses of Moderna COVID-19 vaccine. ALLERGIES: She has had a rash with SULFONAMIDE ANTIBIOTICS. PHYSICAL EXAMINATION: GENERAL: She is alert, awake and oriented, was having hemodialysis. Reported to have had just 2 liters of fluid just removed. VITAL SIGNS: Has a pulse of 78 and a blood pressure of 147/58, saturating 98% on 3 liters nasal cannula, afebrile with a temperature of 35.8. HEENT: Head is normocephalic and atraumatic. Pupils are equal and reactive. There is no throat erythema. NECK: Does not show raised JVP asymmetry, mass or lymph nodes. CHEST: Symmetrical expansion on inspection and palpation. On auscultation, breath sounds are bilaterally equal. No added sounds. HEART: Regular. There is no murmur. ABDOMEN: Soft and nontender. EXTREMITIES: Lower extremities show no edema, no calf tenderness. SKIN: Dry and intact. NEUROLOGIC: Moves all extremities bilaterally equally and spontaneously with no focal deficit identified. LABORATORY DATA: The patient's previous chest x-rays are reviewed. There are some chronic changes. Also, there have been waxing and waning atypical looking infiltrates, likely secondary to intermittent development of pulmonary vascular congestion. The patient's V/Q scan is low probability. ASSESSMENT AND PLAN: 1. Shortness of breath. Primarily, this appears to be secondary to fluid overload related to her chronic renal failure, which may have already been corrected. Also, she has had anemia, which likely is contributing to her shortness of breath. In addition, however, she may have underlying COPD and obstructive sleep apnea as well. 2. Pulmonary infiltrates/fluid overload, likely the atypical infiltrates seen on chest x-rays are secondary to fluid overload. I will go ahead and repeat a chest x-ray after dialysis and see if the same finding is still seen. If it is still present, we certainly can obtain a CT chest without contrast and define this further. Meanwhile, she remains on Zosyn, which I continued. 2. End-stage renal disease, previously on peritoneal dialysis, currently having hemodialysis. [address] [address] CONSULTATION Name: KARAN BENITO Room: [address] IN Jayme.Stuart.#: [id number] Admission: 08/05/21 Attend Phys: Sayra Waters MD Discharge: Date of : 40 Report #: [id number] 3. Coronary artery disease. I understand the plan per Cardiology Service is conservative management. 4. Extensive history of smoking/possible underlying COPD. For now, I only ordered p.r.n. albuterol, we will follow. If the patient is interested, then certainly this could be worked up further as an outpatient. 5. Suspected underlying obstructive sleep apnea. Recommend tapering off oxygen as tolerated. Once she is off of oxygen, I would plan to obtain a nocturnal pulse oximetry. If the patient is motivated, then an outpatient sleep study can be performed as well. 6. Anemia, has been seen by Hematology as well as GI services. <ELECTRONICALLY SIGNED> By: Mor Phillips MD 08/15/21 1225 1334 [id number] Phillips MD /nt
[2021-08-15 16:52] VITALS: BP 148/56
[2021-08-16 08:00] VITALS: BP 128/54
--- NOTE | 2021-08-16 11:03 | OP ---
[facility] [address] [place] [address] OPERATIVE REPORT Name: KARAN BENITO Room: [address] IN M.R.#: [id number] Admission: 08/05/21 Attend Phys: Sayra Waters MD Discharge: Date of : 40 Report #: [id number] THIS REPORT FOR: cc: Kush Gresham John E. DO Patterson,Geo Haque MD ~ DATE OF SURGERY: 08/12/2021 PREOPERATIVE DIAGNOSIS: Malfunctioning peritoneal catheter. POSTOPERATIVE DIAGNOSIS: Malfunctioning peritoneal catheter. OPERATION: Laparoscopic revision of peritoneal catheter with removal of obstructive material. SURGEON: Geo Rodriguez MD. ANESTHESIA: General. ESTIMATED BLOOD LOSS: Minimal. SPECIMENS: None. DESCRIPTION OF PROCEDURE: After informed consent was obtained, the patient was brought to the operating room and placed supine. SCDs were placed and working, preoperative antibiotics were administered, general anesthesia was induced. The abdomen was prepped and draped in the usual sterile fashion. A 5 mm incision was made in the left upper quadrant. A 5 mm trocar was placed under direct vision. Pneumoperitoneum was established. A 5 mm trocar was placed in the left side under direct vision. She had a small bowel wrapped in area down the pelvis in which some small bowel had adhered itself around the catheter and then up to abdominal wall. This was brushed down very lightly and the bowel was peeled off easily. Catheter was then very free. It flushed and drained easily with heparinized saline. The ports were removed under direct vision. The skin was closed with 4-0 Monocryl. Incisions were dressed with Steri-Strips. COMPLICATIONS: None. DISPOSITION: The patient was taken to recovery in satisfactory condition. <ELECTRONICALLY SIGNED> By: Geo Rodriguez MD 08/16/21 1103 1259 [id number] Rodriguez MD /nt
[2021-08-16 16:00] VITALS: BP 137/53
[2021-08-17] VITALS: BP 133/49
[2021-08-17 07:15] VITALS: BP 134/57
[2021-08-17 09:08] LABS: ANTI-DNA SCREEN 36 IU/mL (0-9); ANTI-RNP <0.2 AI (0.0-0.9); ANTI-SSA <0.2 AI (0.0-0.9); ANTIJO-I AB <0.2 AI (0.0-0.9)
[2021-08-17 20:30] VITALS: BP 116/63
[2021-08-18 08:35] VITALS: BP 119/47
[2021-08-18 16:00] VITALS: BP 107/47
[2021-08-18 20:00] VITALS: BP 131/54
[2021-08-19 12:13] VITALS: BP 128/56
[2021-08-19 21:08] VITALS: BP 123/62
[2021-08-20 08:00] VITALS: BP 132/63
[2021-08-20 16:57] VITALS: BP 144/57
[2021-08-20 19:56] VITALS: BP 137/61
[2021-08-21 05:43] LABS: HEMATOCRIT 25.4 % (37.0-47.0); HEMOGLOBIN 8.7 gm/dL (12.0-15.0); MCH 31.6 pg (26.0-34.0); MCHC 34.2 g/dL (28.0-37.0); MCV 92.4 fL (80.0-100.0); MPV 6.8 fl. (7.2-11.1); RBC 2.75 mil/uL (4.20-5.00); RDW-CV 15.6 % (10.5-14.5); WBC 6.1 thou/uL (4.0-11.0)
[2021-08-21 06:03] LABS: CALCIUM 9.2 mg/dL (8.5-10.1); CREATININE 5.8 mg/dL (0.6-1.3); POTASSIUM 3.8 mmol/L (3.5-5.1)
--- NOTE | 2021-08-21 09:38 | CON ---
[address] [address] CONSULTATION Name: KARAN BENITO Room: [address] IN M.R.#: [id number] Admission: 08/05/21 Attend Phys: Sayra Waters MD Discharge: Date of : 40 Report #: [id number] THIS REPORT FOR: cc: Kush Gresham John E. DO Arakelov, Alexandr V. MD ~ DATE OF CONSULTATION: 08/06/2021 REQUESTING PHYSICIAN: Sayra Waters MD REASON FOR CONSULTATION: Assist in providing dialysis. HISTORY OF PRESENT ILLNESS: The patient is an 80-year-old female well known to me. She has end-stage renal disease, on dialysis on Monday, and Monday schedule, was sent here for evaluation of anemia. She had dialysis yesterday. PAST MEDICAL HISTORY: 1. End-stage renal disease. 2. Diabetes mellitus type 2. 3. Hypertension. 4. Anemia. SOCIAL HISTORY: Does not smoke cigarettes, does not drink alcohol. FAMILY HISTORY: Positive for diabetes and hypertension her parents. MEDICATIONS: Reviewed. REVIEW OF SYSTEMS: She feels fine. She wants to go home. PHYSICAL EXAMINATION: GENERAL: Awake, alert, oriented. VITAL SIGNS: Blood pressure is 140/60, heart rate 99, afebrile. HEENT: Pupils round. NECK: Supple. LUNGS: Clear. CARDIOVASCULAR: Regular rate. ABDOMEN: Soft. EXTREMITIES: Lower extremities, no edema. Her fistula, which is left brachiocephalic fistula, is patent. LABORATORY DATA: Hemoglobin 6.8. Serum sodium 136, potassium 3.7, BUN 5, creatinine 1.9[place] [address] CONSULTATION Name: KARAN BENITO Room: [address]#: [id number] Admission: 08/05/21 Attend Phys: Sayra Waters MD Discharge: Date of : 40 Report #: [id number] ASSESSMENT: 1. End-stage renal disease, dialysis Monday, and Monday schedule. 2. Anemia. No obvious source of bleeding. 3. Hypertension. 4. Diabetes mellitus type 2. PLAN: Give her Epogen, check iron stores, make sure she is not bleeding and we will dialyze her tomorrow. <ELECTRONICALLY SIGNED> By: Shawn Gong MD 08/21/21 0938 0852 0859Shawn Gong MD /nt
[2021-08-21 09:45] VITALS: BP 128/49
[2021-08-21 20:15] VITALS: BP 124/45
[2021-08-22 00:28] VITALS: BP 107/41
[2021-08-22 04:22] LABS: HEMATOCRIT 25.9 % (37.0-47.0); HEMOGLOBIN 8.8 gm/dL (12.0-15.0); MCH 31.4 pg (26.0-34.0); MCV 92.5 fL (80.0-100.0); MPV 7.2 fl. (7.2-11.1); RBC 2.8 mil/uL (4.20-5.00); RDW-CV 15.7 % (10.5-14.5); WBC 6.9 thou/uL (4.0-11.0)
[2021-08-22 04:32] LABS: CALCIUM 8.8 mg/dL (8.5-10.1)
[2021-08-22 04:35] LABS: CREATININE 3.5 mg/dL (0.6-1.3)
[2021-08-22 07:55] VITALS: BP 114/45
[2021-08-22 16:00] VITALS: BP 126/58
[2021-08-22 20:00] VITALS: BP 118/46
[2021-08-23 08:00] VITALS: BP 153/65
[2021-08-23 14:03] VITALS: BP 128/56
[2021-08-24 07:08] LABS: HEPATITIS B SURFACE AG Negative (Negative)
== END 2021-08-23 14:00 | disposition home or self-care (01) | DRG 981 ==
LOC: M.ERS 19:25 → M.2W 21:53 → M.TBA-ER 21:53 → M.2W 08-06 02:45 → M.3W 08-10 07:52
PROVIDERS: Emergency Medicine; Internal Medicine; Internal Medicine Critical Care Medicine; Internal Medicine Gastroenterology; Internal Medicine Nephrology; ADMIT Family Medicine; ATTEND Family Medicine
PROC: 5A0935A Assistance with Respiratory Ventilation, Less than 24 Consecutive Hours, High Flow/Velocity Cannula (ICD-10-PCS; principal; 2021-08-05)
PROC: 30233N1 Transfusion of Nonautologous Red Blood Cells into Peripheral Vein, Percutaneous Approach (ICD-10-PCS; 2021-08-06)
PROC: 5A1D70Z Performance of Urinary Filtration, Intermittent, Less than 6 Hours Per Day (ICD-10-PCS; 2021-08-08)
PROC: 5A0935A Assistance with Respiratory Ventilation, Less than 24 Consecutive Hours, High Flow/Velocity Cannula (ICD-10-PCS; 2021-08-08)
PROC: 5A1D70Z Performance of Urinary Filtration, Intermittent, Less than 6 Hours Per Day (ICD-10-PCS; 2021-08-10)
PROC: 0DJ08ZZ Inspection of Upper Intestinal Tract, Via Natural or Artificial Opening Endoscopic (ICD-10-PCS; 2021-08-11)
PROC: 0WWG43Z Revision of Infusion Device in Peritoneal Cavity, Percutaneous Endoscopic Approach (ICD-10-PCS; 2021-08-12)
PROC: 5A1D70Z Performance of Urinary Filtration, Intermittent, Less than 6 Hours Per Day (ICD-10-PCS; 2021-08-12)
PROC: 5A0935A Assistance with Respiratory Ventilation, Less than 24 Consecutive Hours, High Flow/Velocity Cannula (ICD-10-PCS; 2021-08-13)
PROC: 5A1D70Z Performance of Urinary Filtration, Intermittent, Less than 6 Hours Per Day (ICD-10-PCS; 2021-08-17)
PROC: 5A1D70Z Performance of Urinary Filtration, Intermittent, Less than 6 Hours Per Day (ICD-10-PCS; 2021-08-19)
PROC: 5A1D70Z Performance of Urinary Filtration, Intermittent, Less than 6 Hours Per Day (ICD-10-PCS; 2021-08-21)
DX: J15.6 Pneumonia due to other Gram-negative bacteria (principal); N18.6 End stage renal disease; J96.01 Acute respiratory failure with hypoxia; I12.0 Hypertensive chronic kidney disease with stage 5 chronic kidney disease or end stage renal disease; T85.611A Breakdown (mechanical) of intraperitoneal dialysis catheter, initial encounter; R04.2 Hemoptysis; J44.0 Chronic obstructive pulmonary disease with (acute) lower respiratory infection; D63.1 Anemia in chronic kidney disease; F32.9 Major depressive disorder, single episode, unspecified; E03.9 Hypothyroidism, unspecified; E83.42 Hypomagnesemia; E11.22 Type 2 diabetes mellitus with diabetic chronic kidney disease; K21.00 Gastro-esophageal reflux disease with esophagitis, without bleeding; D50.9 Iron deficiency anemia, unspecified; K29.70 Gastritis, unspecified, without bleeding; K44.9 Diaphragmatic hernia without obstruction or gangrene; I25.10 Atherosclerotic heart disease of native coronary artery without angina pectoris; Y83.8 Other surgical procedures as the cause of abnormal reaction of the patient, or of later complication, without mention of misadventure at the time of the procedure; E66.9 Obesity, unspecified; K57.90 Diverticulosis of intestine, part unspecified, without perforation or abscess without bleeding; Z79.82 Long term (current) use of aspirin; Z79.899 Other long term (current) drug therapy; Z80.42 Family history of malignant neoplasm of prostate; Z90.710 Acquired absence of both cervix and uterus; Z90.49 Acquired absence of other specified parts of digestive tract; Z88.2 Allergy status to sulfonamides; Z79.01 Long term (current) use of anticoagulants; Z81.1 Family history of alcohol abuse and dependence; Y92.89 Other specified places as the place of occurrence of the external cause; Z68.29 Body mass index [BMI] 29.0-29.9, adult; Z79.4 Long term (current) use of insulin; Z20.822 Contact with and (suspected) exposure to COVID-19

== ENCOUNTER → 2021-09-24 | Day surgery (SDC) | payer MEDICARE ==
[~2021-09-24] MED LIST changes: +AMLODIPINE BESY10 MG PO; +COLACE100 MG PO; +LEVO-T50 MCG PO; +NOVOLOG FL100 UNIT/M SUBQ
[2021-09-24 11:10] LABS: HEMATOCRIT 33.4 % (37.0-47.0); HEMOGLOBIN 11.2 gm/dL (12.0-15.0); MCH 30.5 pg (26.0-34.0); MCHC 33.6 g/dL (28.0-37.0); MCV 90.9 fL (80.0-100.0); MPV 7.1 fl. (7.2-11.1); RBC 3.67 mil/uL (4.20-5.00); RDW-CV 16.6 % (10.5-14.5); WBC 7.4 thou/uL (4.0-11.0)
[2021-09-24 11:26] LABS: CALCIUM 8.9 mg/dL (8.5-10.1); CREATININE 3.5 mg/dL (0.6-1.3)
--- NOTE | 2021-10-11 12:28 | OP ---
[facility] [address] [place] [address] OPERATIVE REPORT Name: KARAN BENITO Room: [facility]#: [id number] Admission: 09/24/21 Attend Phys: Geo Rodriguez Discharge: Date of : 40 Report #: [id number] THIS REPORT FOR: cc: Kush Gresham John E. DO Patterson,Geo Haque MD ~ DATE OF SURGERY: 09/24/2021 PREOPERATIVE DIAGNOSIS: Malfunction of peritoneal catheter. POSTOPERATIVE DIAGNOSIS: Malfunction of peritoneal catheter. OPERATION: Laparoscopic revision of peritoneal catheter with removal of obstructive material. SURGEON: Geo Rodriguez MD ANESTHESIA: General. ESTIMATED BLOOD LOSS: Minimal. SPECIMENS: None. DESCRIPTION OF PROCEDURE: After informed consent was obtained, the patient was brought to the operating room and placed supine. SCDs were placed and working, preoperative antibiotics were administered, general anesthesia was induced. The abdomen was prepped and draped in the usual sterile fashion. Veress needle was inserted in the left upper quadrant. Pneumoperitoneum was established. A 5-mm port was placed at that site. A 5-mm trocar was placed in the left lower quadrant. The catheter was visualized. It was stuck in between 2 loops of small bowel that had become adhesed to each other. The catheter was removed from this adhesion. Catheter was then flushed easily with 750 mL of heparinized saline. It drained easily as well. The ports were then removed under direct vision. The skin was closed with 4-0 Monocryl. Incisions were dressed with Steri-Strips. COMPLICATIONS: None. DISPOSITION: The patient was taken to recovery in satisfactory condition. <ELECTRONICALLY SIGNED> By: Geo Rodriguez MD 10/11/21 1228 [id number] Rodriguez MD /nt
== END | disposition home or self-care (01) ==
LOC: M.SUR 08:17
PROVIDERS: ATTEND Surgery
DX: T85.611A Breakdown (mechanical) of intraperitoneal dialysis catheter, initial encounter (principal); I12.9 Hypertensive chronic kidney disease with stage 1 through stage 4 chronic kidney disease, or unspecified chronic kidney disease; E11.22 Type 2 diabetes mellitus with diabetic chronic kidney disease; N18.6 End stage renal disease; J44.9 Chronic obstructive pulmonary disease, unspecified; I25.2 Old myocardial infarction; Z98.890 Other specified postprocedural states; Z79.899 Other long term (current) drug therapy; Z20.822 Contact with and (suspected) exposure to COVID-19; Z88.2 Allergy status to sulfonamides; Z79.82 Long term (current) use of aspirin; Y83.8 Other surgical procedures as the cause of abnormal reaction of the patient, or of later complication, without mention of misadventure at the time of the procedure